=== PATIENT | male | born 1955 | race Caucasian/White ===

== ENCOUNTER 2020-06-14 17:19 | Outpatient (REF) | payer MEDICAID, SELFPAY ==
[2020-06-14 21:04] LABS: Anion Gap 11.2 mmol/L (3-11); BUN 17 mg/dL (7-18); CO2 23.8 mmol/L (21.0-32.0); CREATININE 1.1 mg/dL (0.70-1.30); Calcium 8.9 mg/dL (8.5-10.1); Chloride 104 mmol/L (98-107); Glucose 95 mg/dL (74-106); Potassium 5.1 mmol/L (3.5-5.1); Sodium 139 mmol/L (136-145)
== END 2020-06-14 17:20 | disposition home or self-care (01) ==
LOC: NCHCN 17:19
PROVIDERS: PCP Nurse Practitioner; Visit Provider Physician Assistant Medical
DX: R22.43 Localized swelling, mass and lump, lower limb, bilateral (principal)
CPT/HCPCS: 80048

== ENCOUNTER 2020-06-15 10:33 | Outpatient (CLI) | payer MEDICAID, SELFPAY ==
--- NOTE | 2020-06-15 | DI.US_ITS ---
Exam(s) US EXTREMITY VENOUS BI EXAM: US EXTREMITY VENOUS BI CLINICAL HISTORY: BILAT LEG SWELLING R22.43. TECHNIQUE: Bilateral lower extremity venous ultrasound performed using grayscale, color-flow, and sp ectral Doppler analysis. COMPARISON: No exams were available for comparison FINDINGS: The bilateral common femoral, femoral and popliteal veins demonstrate normal compressibility, augment ation, and color Doppler. The posterior tibial veins are patent. The saphenofemoral junctions are unr emarkable. There is no evidence of a Barrios's cyst. The soft tissues are unremarkable. IMPRESSION: Right: Negative for DVT Left: Negative for DVT DATA REPOSITORY:
[2020-06-15 13:05] LABS: HCT 37.7 % (40.0-50.0); HGB 12.5 g/dL (13.5-17.5); MCH 29.3 pg (27.0-33.0); MCHC 33.2 % (32.0-36.0); MCV 88.5 fL (80-95); MPV 9.9 fL (8.0-11.0); Platelet Count 251 10^3/uL (130-400); RBC 4.26 10^6/uL (4.36-5.78); RDW 13.4 % (11.8-14.1); RDW-SD 43.8 fL; WBC 6.83 10^3/uL (4.4-10.8)
== END 2020-06-15 10:53 ==
PROVIDERS: PCP Nurse Practitioner; Visit Provider Physician Assistant Medical
DX: R22.43 Localized swelling, mass and lump, lower limb, bilateral (principal)
CPT/HCPCS: 36415; 85027; 93970

== ENCOUNTER 2021-02-19 17:56 | Outpatient (REF) | payer MEDICAID, SELFPAY ==
[2021-02-19 20:49] LABS: Abs Immature Grans 0.02 10^3/uL (0.0-0.06); Absolute Basophil Count 0.06 10^3/uL (0.0-0.2); Absolute Eosinophil Count 0.21 10^3/uL (0.0-0.7); Absolute Lymphocyte Count 2.99 10^3/uL (1.2-3.4); Absolute Monocyte Count 0.86 10^3/uL (0.1-0.8); Absolute Neutrophil Count 4.03 10^3/uL (1.2-6.7); Basophils % 0.7; Eosinophils % 2.6; HCT 41.7 % (40.0-50.0); HGB 13.3 g/dL (13.5-17.5); Immature Grans % 0.2; Lymphocytes % 36.6; MCH 27.4 pg (27.0-33.0); MCHC 31.9 % (32.0-36.0); MCV 85.8 fL (80-95); MPV 10.6 fL (8.0-11.0); Monocytes % 10.5; Neutrophils % 49.4; Nucleated RBC 0 %; Platelet Count 329 10^3/uL (130-400); RBC 4.86 10^6/uL (4.36-5.78); RDW 14.1 % (11.8-14.1); RDW-SD 44.2 fL; WBC 8.17 10^3/uL (4.4-10.8)
[2021-02-19 21:03] LABS: ALT 32 U/L (16-63); AST 35 U/L (15-37); Alkaline Phosphatase 99 U/L (46-116); Anion Gap 8.7 mmol/L (3-11); BUN 17 mg/dL (7-18); Bilirubin, Total 0.2 mg/dL (0.2-1.0); CO2 28.3 mmol/L (21.0-32.0); CREATININE 1.1 mg/dL (0.70-1.30); Chloride 101 mmol/L (98-107); Glucose 91 mg/dL (74-106); Potassium 4.7 mmol/L (3.5-5.1); Sodium 138 mmol/L (136-145); Total Protein 7.7 g/dL (6.4-8.2)
[2021-02-21 11:41] LABS: COVID-19 RT-PCR UVMMC Result Negative (Negative)
== END 2021-02-19 17:57 | disposition home or self-care (01) ==
LOC: LBN 17:56
PROVIDERS: PCP Nurse Practitioner; Visit Provider Physician Assistant
DX: R09.81 Nasal congestion (principal); R60.0 Localized edema; Z20.822 Contact with and (suspected) exposure to COVID-19
CPT/HCPCS: 80053; U0003; 85025

== ENCOUNTER 2023-05-05 10:39 | Outpatient (REF) | payer MEDICARE, SELFPAY ==
[2023-05-05 13:09] LABS: Anion Gap 10.1 mmol/L (3-11); BUN 44 mg/dL (7-18); CO2 30.9 mmol/L (21.0-32.0); CREATININE 1.7 mg/dL (0.70-1.30); Calcium 9.3 mg/dL (8.5-10.1); Chloride 98 mmol/L (98-107); Estimated GFR 44.18 (mL/min/1.73m2); Glucose 113 mg/dL (74-106); Potassium 3.8 mmol/L (3.5-5.1); Sodium 139 mmol/L (136-145)
== END 2023-05-05 10:40 ==
LOC: LBN 10:39
PROVIDERS: PCP Nurse Practitioner; Visit Provider Physician Assistant Surgical
DX: I27.20 Pulmonary hypertension, unspecified (principal)
CPT/HCPCS: 80048

== ENCOUNTER 2023-05-05 12:03 | Emergency (ER) | payer MEDICARE, MEDICAID, SELFPAY ==
--- NOTE | 2023-05-05 12:00 | RT.EKG_ITS ---
APPROVED REPORT Exam: Resting ECG Reason for Exam: hypoventilating Patient Location: E HR:106 bpm ECG Measurements Heart Rate 106 AXIS VA 172 P 114 QRSd 127 QRS 33 QT 358 T 47 QTc 475 Conclusion Sinus tachycardia...rate> 99 Ventricular premature complex...V complex w/ short R-R interval Probable left atrial enlargement...P >50mS, <-0.10mV V1 Nonspecific intraventricular conduction delay...QRSd >115mS, not LBBB/RBBB Consider anteroseptal infarct...Q >30mS, dimin R, V1-V2 artifact present
[2023-05-05 12:04] VITALS: O2SAT 94
[2023-05-05] MEDS: Albuterol/Ipratropium 3 ML UPD VIAL UPD (12:09)
[2023-05-05] MEDS: methylPREDNISolone SUCC 125 MG VIAL 60 MG IVP (12:11)
[2023-05-05 12:18] VITALS: TEMP 36.8; O2SAT 94
[2023-05-05 12:19] LABS: Abs Immature Grans 0.03 10^3/uL (0.0-0.06); Absolute Basophil Count 0.07 10^3/uL (0.0-0.2); Absolute Eosinophil Count 0.19 10^3/uL (0.0-0.7); Absolute Lymphocyte Count 3.81 10^3/uL (1.2-3.4); Absolute Monocyte Count 1.31 10^3/uL (0.1-0.8); Absolute Neutrophil Count 3.95 10^3/uL (1.2-6.7); Basophils % 0.7; HCT 37.1 % (40.0-50.0); HGB 12.5 g/dL (13.5-17.5); Immature Grans % 0.3; Lymphocytes % 40.7; MCH 28.9 pg (27.0-33.0); MCHC 33.7 % (32.0-36.0); MCV 86 fL (80-95); MPV 9.8 fL (8.0-11.0); Neutrophils % 42.3; Platelet Count 346 10^3/uL (130-400); RBC 4.32 10^6/uL (4.36-5.78); RDW-SD 43.9 fL; WBC 9.36 10^3/uL (4.4-10.8)
[2023-05-05 12:39] VITALS: PULSE 93; RESP 19; RESP 2
[2023-05-05 12:43] LABS: ALT 28 U/L (16-63); AST 24 U/L (15-37); Albumin 4.1 g/dL (3.4-5.0); Alkaline Phosphatase 92 U/L (46-116); Anion Gap 8.5 mmol/L (3-11); BUN 45 mg/dL (7-18); Bilirubin, Total 0.4 mg/dL (0.2-1.0); CO2 31.5 mmol/L (21.0-32.0); CREATININE 1.6 mg/dL (0.70-1.30); Calcium 9.4 mg/dL (8.5-10.1); Chloride 98 mmol/L (98-107); Estimated GFR 47.52 (mL/min/1.73m2); Glucose 117 mg/dL (74-106); Magnesium 2.2 mg/dL (1.8-2.4); NT-proBNP 58 pg/mL (<300); Potassium 3.2 mmol/L (3.5-5.1); Sodium 138 mmol/L (136-145); Troponin I < 50 ng/L (< or =60)
[2023-05-05] MEDS: Potassium Chloride 20 MEQ TABCR PO (13:14)
[2023-05-05] MEDS: Sodium Chloride-Nasal SPRAY-ADULT 44 ML BTL NS (13:26)
[2023-05-05 13:58] LABS: D-Dimer 4815 ng/mlFEU (<500)
--- NOTE | 2023-05-05 14:00 | DI.CT_ITS ---
Exam(s) CT CHEST PE CTA EXAM: CT CHEST PE CTA CLINICAL HISTORY: shortness of breath. TECHNIQUE: Imaging Protocol: Axial CT angiography was performed with multi-slice acquisition and mu lti-planar and/or 3D reconstructions. CONTRAST MATERIAL: Intravenous: Omnipaque 350 contrast volume:100 mL COMPARISON: CT CT CHEST WO CONTRAST from 04/26/[address] CHEST WO CONTRAST from 05/27/[address] CHEST LOW DOSE CA SCREENING from 05/28/2022 FINDINGS: Tracheobronchial tree: Patent where visualized. Pulmonary parenchyma: Moderate centrilobular emphysematous changes are present. There are no pulmona ry nodules. Mild dependent atelectatic changes are seen in the lung bases. Pulmonary Arteries: There is a nonocclusive filling defect seen in a branch of the pulmonary artery t o the right upper lobe. (Series 6, image 209). Mediastinum and Beatrice: No dominant adenopathy or fluid collection. The esophagus is unremarkable. Visualized thyroid gland: Unremarkable. Pleura: No effusion or pneumothorax. Heart: The heart is not dilated. Coronary artery calcification is present. No pericardial effusion. Aorta: Thoracic aorta non-dilated. No evidence of dissection. Atherosclerotic calcification is presen t. Upper abdomen: There are few tiny hypodensities in the liver which are too small for further charact erization. Soft tissues: Unremarkable. Bones: Within normal limits for the patient's age.There are old healed right rib fractures. IMPRESSION: 1. There is a filling defect in a branch of the pulmonary arteries to the right upper lobe consistent with an embolus. 2. Moderate centrilobular emphysema. 3. Findings were discussed with Dr. Goldsmith at 3:19 p.m. on 05/05/2023. RADIATION DOSE DELIVERED: Total DLP DATA REPOSITORY: All CT scans at this facility are submitted to the National Radiology Data Registry (NRDR) Dose Index Registry (DIR) with the [employer] (A[employer]). RADIATION OPTIMIZATION: All CT scans at this facility use at least one of these dose optimization te chniques: automated exposure control; mA and/or kV adjustment per patient size (includes targeted exa ms where dose is matched to clinical indication); or iterative reconstruction.
[2023-05-05 14:18] LABS: Troponin I < 50 ng/L (< or =60)
[2023-05-05] MEDS: Normal Saline - Diluent 50 ML VIAL IJ (14:49)
[2023-05-05] MEDS: Omnipaque 350 MG/ML 100 ML BTL IJ (14:50)
--- NOTE | 2023-05-05 15:18 | ED.GENADUL_ITS ---
Discharge Plan Disposition Patient Disposition: Home Condition: Stable Discharge Details Clinical Impression: Panic attack, Pulmonary embolism Primary Care Provider: Conchis Tong ED Provider: Palomo Goldsmith Home Meds and New Rx's Prescriptions: New Eliquis DVT-PE Treat 30D Start 5 mg (74 tabs) tablets,dose pack See Rx Instructions .ROUTE .COMPLEX Qty: 74 0RF Rx Instructions: orally per package directions Continued cephalexin 250 mg capsule 250 mg PO QID ipratropium-albuterol 0.5 mg-3 mg(2.5 mg base)/3 mL solution for nebulization 3 ml inhalation Q4H PRN (Reason: wheezing) Qty: 540 8RF Stiolto Respimat 2.5-2.5 mcg/actuation mist 2 puff inhalation DAILY Qty: 4 12RF furosemide [Lasix] 40 mg tablet 40 mg PO DAILY Qty: 60 7RF fluticasone propionate [Flonase Allergy Relief] 50 mcg/actuation spray,suspension 1 spray intranasal BID Qty: 16 0RF Rx Instructions: administer into each nostril rbjcgljo-cnxmosdlx-IH 3.5-10,000-1 mg/mL-unit/mL-% drops,suspension 4 drp otic (ear) TID methadone [Methadone Intensol] 10 mg/mL concentrate 80 mg PO DAILY potassium chloride 10 mEq tablet extended release 10 meq PO DAILY albuterol sulfate [Proventil HFA] 90 mcg/actuation HFA aerosol inhaler 2 puff inhalation Q6H PRN (Reason: shortness of breath or wheezing) Qty: 8.5 12RF atorvastatin [Lipitor] 20 MG tablet 20 mg PO QPM lisinopril 20 MG tablet 20 mg PO QAM omeprazole 20 MG capsule,delayed release(DR/EC) 20 mg PO DAILY Discontinued ibuprofen [Advil Liqui-Gel] 200 MG capsule 400 mg PO Q6H PRN PRN Discharge Instructions Instructions: Pulmonary Embolism (ED), Panic Attack (ED) Additional Instructions: You were started on Eliquis which is a blood thinner to treat pulmonary embolism (blood clot). Please continue as prescribed. Please contact your primary care physician to arrange follow-up. Return to the ER immediately for any worsening or new concerning symptoms. Referrals: [facility] Pulmonary Clinic [Provider Group] Conchis Togn [Primary Care Provider] - HPI General Mode of arrival: ambulatory . Date/Time Provider Initiated Documentation: 05/05/23 12:04 . Limitations to Documentation: no limitations . Information obtained by: patient . HPI Narrative: 67-year-old male with multiple medical problems including history of COPD, pulmonary hypertension, hepatitis C, hypertension, here with chief complaint of shortness of breath. Symptoms are severe. He notes that he started shortly after arrival at his pulmonology appointment. Patient notes he was told he had a hole in his heart that he did not know about and became quite anxious and short of breath and concerned initially for COPD exacerbation. Patient was sent to the emergency ferment for evaluation and treatment. Patient was notably tachycardic and saturating in the mid 90s. EMS administered DuoNeb treatment. Patient requesting steroid noting this has helped him with exacerbations in the past. Dr. Saxena evaluated the patient in pulmonology clinic today and does feel that anxiety is contributing to his presentation. Related Data Home Medications Medication Instructions Recorded Confirmed atorvastatin 20 mg tablet (Lipitor) 20 mg PO QPM 02/11/16 05/05/23 lisinopril 20 mg tablet 20 mg PO QAM 02/11/16 05/05/23 omeprazole 20 mg capsule,delayed 20 mg PO DAILY 02/11/16 05/05/23 release methadone 10 mg/mL oral 80 mg PO DAILY 05/15/21 05/05/23 concentrate (Methadone Intensol) [id number]-paiwqcufo-fastrxcds 3.5 4 drp otic (ear) TID 05/15/21 05/05/23 mg-10,000 unit/mL-1 % ear drops,susp potassium chloride 10 mEq 10 meq PO DAILY 05/15/21 05/05/23 tablet,extended release albuterol sulfate 90 mcg/actuation 2 puff inhalation Q6H PRN 12/10/21 05/05/23 aerosol inhaler (Proventil HFA) shortness of breath or wheezing #8.5 grams fluticasone propionate 50 1 spray intranasal BID #16 grams 04/01/22 05/05/23 mcg/actuation nasal spray,suspension (Flonase Allergy Relief) cephalexin 250 mg capsule 250 mg PO QID 04/21/23 05/05/23 furosemide 40 mg tablet (Lasix) 40 mg PO DAILY #60 tabs 04/21/23 05/05/23 ipratropium 0.5 mg-albuterol 3 mg 3 ml inhalation Q4H PRN wheezing 04/21/23 05/05/23 (2.5 mg base)/3 mL nebulization #540 mL soln tiotropium 2.5 mcg-olodaterol 2.5 2 puff inhalation DAILY #4 grams 04/21/23 05/05/23 mcg/actuation mist for inhalation (Stiolto Respimat) apixaban 5 mg (74 tabs) tablets in See Rx Instructions PO .COMPLEX 05/05/23 a dose pack (Eliquis DVT-PE Treat #74 dose pk 30D Start) Previous Rx's Medication Instructions Recorded albuterol sulfate 90 mcg/actuation 2 puff inhalation Q6H PRN 12/10/21 aerosol inhaler (Proventil HFA) shortness of breath or wheezing #8.5 grams fluticasone propionate 50 1 spray intranasal BID #16 grams 04/01/22 mcg/actuation nasal spray,suspension (Flonase Allergy Relief) furosemide 40 mg tablet (Lasix) 40 mg PO DAILY #60 tabs 04/21/23 ipratropium 0.5 mg-albuterol 3 mg 3 ml inhalation Q4H PRN wheezing 04/21/23 (2.5 mg base)/3 mL nebulization #540 mL soln tiotropium 2.5 mcg-olodaterol 2.5 2 puff inhalation DAILY #4 grams 04/21/23 mcg/actuation mist for inhalation (Stiolto Respimat) apixaban 5 mg (74 tabs) tablets in See Rx Instructions PO .COMPLEX 05/05/23 a dose pack (Eliquis DVT-PE Treat #74 dose pk 30D Start) Allergies Allergy/AdvReac Type Severity Reaction Status Date / Time No Known Drug Allergies Allergy Unknown Other (See Verified 05/05/23 14:10 Comment) General Stated Complaint: SOB JOHN: 3 Review of Systems Constitutional Constitutional: Denies fever(s) Cardiovascular Cardiovascular: Denies chest pain, Reports dyspnea and Reports other (Chest tightness) Respiratory Respiratory: Reports dyspnea Psychiatric Psychiatric: Reports anxiety Exam Const General: cooperative HENMT Mouth: moist mucous membranes Eyes Conjunctivae: normal conjunctivae Sclera: normal sclerae Neck Neck: trachea midline and supple Resp Effort & Inspection: labored and tachypneic Auscultation: no rales and no rhonchi Cardio Rate: tachycardic Rhythm: regular rhythm GI Palpation: soft, not firm, no guarding, no masses, not rigid and nontender Skin General skin exam: no rashes or lesions noted Neuro General: patient alert, patient awake and tone normal Extrem General: no calf tenderness bilaterally and edema Laterality: bilateral (1+) Psych Appearance: grossly normal Mental Status: mental status grossly normal Affect: anxious affect Course Vital Signs Vital signs: Vital Signs Pulse Oximetry 94 05/05/23 12:04 Temperature 36.8 C 05/05/23 12:18 Temperature Source Tympanic 05/05/23 12:18 Respiratory Effort Short of Breath, Labored, Accessory Muscle Use, Incrsd Work of Breathing 05/05/23 12:18 Respiratory Depth Deep 05/05/23 12:18 Respiratory Pattern Tachypnea 05/05/23 12:18 Pulse Oximetry 94 05/05/23 12:18 Oxygen Delivery Method Room Air 05/05/23 12:18 Oxygen Flow Rate 0 05/05/23 12:18 Lab/Test Results Lab/Test Results: Laboratory Tests Range/Units 05/05/23 05/05/23 12:10 13:40 WBC (4.4-10.8) 10^3/uL 9.36 RBC (4.36-5.78) 10^6/uL 4.32 L Hgb (13.5-17.5) g/dL 12.5 L Hct (40.0-50.0) % 37.1 L MCV (80-95) fL 86 MCH (27.0-33.0) pg 28.9 MCHC (32.0-36.0) % 33.7 RDW (11.8-14.1) % 14.0 Plt Count (130-400) 10^3/uL 346 MPV (8.0-11.0) fL 9.8 Immature Gran % 0.3 Neutrophils % 42.3 Lymphocytes % 40.7 Monocytes % 14.0 Eosinophils % 2.0 Basophils % 0.7 Nucleated RBC % (0.0-0.3) % 0.0 Absolute Neutrophils (1.2-6.7) 10^3/uL 3.95 Absolute Lymphocytes (1.2-3.4) 10^3/uL 3.81 H Absolute Monocytes (0.1-0.8) 10^3/uL 1.31 H Absolute Eosinophils (0.0-0.7) 10^3/uL 0.19 Absolute Basophils (0.0-0.2) 10^3/uL 0.07 D-Dimer (<500) ng/mlFEU 4815 H Sodium (136-145) mmol/L 138 Potassium (3.5-5.1) mmol/L 3.2 L Chloride (98-107) mmol/L 98 Carbon Dioxide (21.0-32.0) mmol/L 31.5 Anion Gap (3-11) mmol/L 8.5 BUN (7-18) mg/dL 45 H Creatinine (0.70-1.30) mg/dL 1.6 H Est GFR (CKD-EPI 2020) (mL/min/1.73m2) 47.52 Glucose (74-106) mg/dL 117 H Calcium (8.5-10.1) mg/dL 9.4 Magnesium (1.8-2.4) mg/dL 2.2 Total Bilirubin (0.2-1.0) mg/dL 0.4 AST (15-37) U/L 24 ALT (16-63) U/L 28 Alkaline Phosphatase (46-116) U/L 92 Troponin I (< or =60) ng/L < 50 < 50 NT-Pro-B Natriuret Pep (<300) pg/mL 58 Total Protein (6.4-8.2) g/dL 8.0 Albumin (3.4-5.0) g/dL 4.1 Medical Decision Making 67-year-old male with history of COPD, pulmonary hypertension, anxiety disorder, here with severe shortness of breath. Initial concern for acute COPD exacerbation. Patient was given a DuoNeb treatment by EMS. A second DuoNeb treatment was provided as well as Solu-Medrol 60 mg. On reassessment symptoms significantly improved. Patient feeling much better. Patient now relating that he feels his symptoms are likely due to a panic attack related to hearing that there was a hole in his heart during pulmonology visit. Labs were sent including D-dimer to assess for pulmonary embolism. D-dimer was positive. CT of the chest was obtained and interpreted by radiology. I spoke with Dr. Rausch about the study. He notes a filling defect in a branch of the pulmonary artery in the right upper lobe consistent with embolism. Dr. Rausch notes no signs of right heart failure. Patient is hemodynamically stable and saturating well in no respiratory distress. Plan at this time is to initiate treatment with Eliquis. I called care management to help secure this medication. I called and spoke with Dr. Saxena and updated her as to ED course. She is in agreement with plan and will arrange for outpatient follow-up with the patient. Lab Data Lab results reviewed: Yes I reviewed the patient's lab results. Labs: Laboratory Tests Range/Units 05/05/23 05/05/23 12:10 13:40 WBC (4.4-10.8) 10^3/uL 9.36 RBC (4.36-5.78) 10^6/uL 4.32 L Hgb (13.5-17.5) g/dL 12.5 L Hct (40.0-50.0) % 37.1 L MCV (80-95) fL 86 MCH (27.0-33.0) pg 28.9 MCHC (32.0-36.0) % 33.7 RDW (11.8-14.1) % 14.0 Plt Count (130-400) 10^3/uL 346 MPV (8.0-11.0) fL 9.8 Immature Gran % 0.3 Neutrophils % 42.3 Lymphocytes % 40.7 Monocytes % 14.0 Eosinophils % 2.0 Basophils % 0.7 Nucleated RBC % (0.0-0.3) % 0.0 Absolute Neutrophils (1.2-6.7) 10^3/uL 3.95 Absolute Lymphocytes (1.2-3.4) 10^3/uL 3.81 H Absolute Monocytes (0.1-0.8) 10^3/uL 1.31 H Absolute Eosinophils (0.0-0.7) 10^3/uL 0.19 Absolute Basophils (0.0-0.2) 10^3/uL 0.07 D-Dimer (<500) ng/mlFEU 4815 H Sodium (136-145) mmol/L 138 Potassium (3.5-5.1) mmol/L 3.2 L Chloride (98-107) mmol/L 98 Carbon Dioxide (21.0-32.0) mmol/L 31.5 Anion Gap (3-11) mmol/L 8.5 BUN (7-18) mg/dL 45 H Creatinine (0.70-1.30) mg/dL 1.6 H Est GFR (CKD-EPI 2020) (mL/min/1.73m2) 47.52 Glucose (74-106) mg/dL 117 H Calcium (8.5-10.1) mg/dL 9.4 Magnesium (1.8-2.4) mg/dL 2.2 Total Bilirubin (0.2-1.0) mg/dL 0.4 AST (15-37) U/L 24 ALT (16-63) U/L 28 Alkaline Phosphatase (46-116) U/L 92 Troponin I (< or =60) ng/L < 50 < 50 NT-Pro-B Natriuret Pep (<300) pg/mL 58 Total Protein (6.4-8.2) g/dL 8.0 Albumin (3.4-5.0) g/dL 4.1 Quality:SDOH Health Related Social Needs: No Data to Display PFSH All Active Problems (Updated 05/05/23 @ 15:35 by Palomo Goldsmith MD) Pulmonary embolism (Chronic) Panic attack (Acute) Pulmonary hypertension (Acute) Abnormal chest CT (Acute) Dyspnea (Acute) Nicotine dependence, cigarettes, uncomplicated (Acute) Pleural effusion (Acute) Ribs, multiple fractures (Acute) Atelectasis (Acute) Pedal edema (Acute) Hepatitis C (Chronic) Heartburn (Acute) GERD (gastroesophageal reflux disease) (Chronic) Essential hypertension (Acute) Depression (Chronic) Atrioventricular block (Acute) Arthritis (Acute) Anxiety (Chronic) ADHD (Acute) Medical History History of meniscal tear History of drug abuse History of alcohol abuse Surgical History H/O: vasectomy History of esophagogastroduodenoscopy (EGD) History of colonoscopy H/O arthroscopy of left knee Family History Father Diabetes Hypertension Mother Hypertension Heart disease Hypothyroidism Breast cancer Social History Smoking/Tobacco Use Status: Former Tobacco Use Smoking risk assessment performed?: Yes Alcohol Intake: former Substance use type: does not use Housing: house Do you feel safe at home: Yes Do you feel safe in your relationship?: Yes
[2023-05-05] MEDS: Apixaban 5 MG TAB 10 MG PO (16:25)
[2023-05-05 16:50] VITALS: PULSE 93; RESP 19
== END 2023-05-05 16:54 | disposition home or self-care (01) ==
LOC: ER 16:23
PROVIDERS: Emergency Provider Student in an Organized Health Care Education/Training Program; PCP Nurse Practitioner
DX: I27.20 Pulmonary hypertension, unspecified (principal); I26.99 Other pulmonary embolism without acute cor pulmonale; F41.0 Panic disorder [episodic paroxysmal anxiety]; I10 Essential (primary) hypertension; J44.9 Chronic obstructive pulmonary disease, unspecified; R94.31 Abnormal electrocardiogram [ECG] [EKG]; R79.89 Other specified abnormal findings of blood chemistry; Z87.891 Personal history of nicotine dependence
CPT/HCPCS: 36415; 71275; 76604; 80053; 93005; 94640; 96374; 99214; 99285; 83735; 83880; 84484; 85025; 85379; 93010; 99284; J2930; J3490; J7620

== ENCOUNTER → 2023-06-04 14:57 | Outpatient (BNVA) | payer MEDICARE, MEDICAID, SELFPAY | PROVIDERS: PCP Nurse Practitioner; Referring Provider Nurse Practitioner; Visit Provider Student in an Organized Health Care Education/Training Program | DX: R60.0 Localized edema (principal); J44.9 Chronic obstructive pulmonary disease, unspecified; I26.99 Other pulmonary embolism without acute cor pulmonale; I27.20 Pulmonary hypertension, unspecified; F17.210 Nicotine dependence, cigarettes, uncomplicated | CPT/HCPCS: 99214 ==

== ENCOUNTER → 2023-08-05 10:04 | Outpatient (BNVA) | payer MEDICARE, MEDICAID, SELFPAY | PROVIDERS: PCP Nurse Practitioner; Referring Provider Nurse Practitioner; Visit Provider Physician Assistant Surgical | DX: J44.9 Chronic obstructive pulmonary disease, unspecified (principal); F17.210 Nicotine dependence, cigarettes, uncomplicated; I26.99 Other pulmonary embolism without acute cor pulmonale | CPT/HCPCS: 99214 ==

== ENCOUNTER → 2023-08-10 09:16 | Outpatient (BNVA) | payer MEDICARE, MEDICAID, SELFPAY | PROVIDERS: PCP Nurse Practitioner; Referring Provider Nurse Practitioner; Visit Provider Student in an Organized Health Care Education/Training Program | DX: M16.12 Unilateral primary osteoarthritis, left hip (principal) | CPT/HCPCS: 99214 ==

== ENCOUNTER 2023-09-16 06:07 | Day surgery (SDC) | payer MEDICARE, MEDICAID, SELFPAY ==
[2023-09-16] VITALS (41 sets, daily range): BP systolic 59–143; BP diastolic 32–106; PULSE 53–100; RESP 10–26; TEMP 36.4–36.9; O2SAT 90–99; BMI 35.7
[2023-09-16] MEDS: Gabapentin 300 MG CAP PO (07:02)
[2023-09-16] MEDS: Acetaminophen 500 MG TAB 1000 MG PO (07:02)
[2023-09-16] MEDS: Celecoxib 200 MG CAP 400 MG PO (07:02)
--- NOTE | 2023-09-16 07:18 | W.ANESPRE ---
General Info Date of Service Date Performed: 09/16/23 Height: 6 ft Weight: 119.6 kg Body Mass Index (BMI): 35.7 Surgical Procedure: Operation Date: 09/16/23 07:50 Proposed Procedure Side Surgeon p Hip Total Hip Anterior, ACTIS Left Patrick Seymour MD Meds Allergies and Home Medications Allergies Allergy/AdvReac Type Severity Reaction Status Date / Time No Known Drug Allergies Allergy Unknown Other (See Verified 09/16/23 06:09 Comment) Home Medication ?Medication ?Instructions ?Recorded atorvastatin 20 mg tablet (Lipitor) 20 mg PO QPM 02/11/16 lisinopril 20 mg tablet 20 mg PO QAM 02/11/16 oslxhnyb-szgvwytlq-fnzkolsat 3.5 4 drp otic (ear) TID 05/15/21 mg-10,000 unit/mL-1 % ear drops,susp ipratropium 0.5 mg-albuterol 3 mg 3 ml inhalation Q4H PRN wheezing 04/21/23 (2.5 mg base)/3 mL nebulization #540 mL soln tiotropium 2.5 mcg-olodaterol 2.5 2 puff inhalation DAILY #4 grams 04/21/23 mcg/actuation mist for inhalation (Stiolto Respimat) apixaban 5 mg (74 tabs) tablets in See Rx Instructions PO .COMPLEX 05/05/23 a dose pack (Splashscore DVT-PE Treat #74 dose pk 30D Start) torsemide 20 mg tablet 20 mg PO DAILY 06/04/23 albuterol sulfate 90 mcg/actuation 2 puff inhalation Q6H PRN 07/14/23 aerosol inhaler (Ventolin HFA) chlorthalidone 25 mg tablet 25 mg PO DAILY 07/14/23 metolazone 5 mg tablet 10 mg PO DAILY 07/14/23 metoprolol tartrate 25 mg tablet 25 mg PO DAILY 07/14/23 omeprazole 40 mg capsule,delayed 40 mg PO DAILY 07/14/23 release potassium bicarbonate-citric acid 20 meq PO DAILY 07/14/23 20 mEq effervescent tablet fluticasone propionate 50 1 spray intranasal BID PRN 08/05/23 mcg/actuation nasal spray,suspension (Flonase Allergy Relief) methadone 10 mg/mL oral 130 mg PO DAILY 08/05/23 concentrate (Methadone Intensol) Current Visit Medications: Current Medications Generic Name Dose Route Start Last Admin Trade Name Zhen PRN Reason Stop Dose Admin Acetaminophen 1,000 mg 09/16/23 06:00 09/16/23 07:02 Acetaminophen 500 Mg Tab PO 09/16/23 23:59 1,000 mg PREOP SUNDEEP Administration Celecoxib 400 mg 09/16/23 06:00 09/16/23 07:02 Celecoxib 200 Mg Cap PO 09/16/23 23:59 400 mg PREOP SUNDEEP Administration Gabapentin 300 mg 09/16/23 06:00 09/16/23 07:02 Gabapentin 300 Mg Cap PO 09/16/23 23:59 300 mg PREOP SUNDEEP Administration Ringer's Solution 1,000 mls @ 80 mls/hr 09/16/23 06:00 IV 09/16/23 23:59 INFUSION SUNDEEP Cefazolin Sodium 3,000 mg/ 100 mls @ 200 mls/hr 09/16/23 06:00 Sodium Chloride IVPB 09/16/23 23:59 PREOP SUNDEEP Tranexamic Acid/Sodium Chloride 1,000 mg in 100 mls @ 600 mls/hr 09/16/23 06:00 IVPB 09/16/23 23:59 PREOP SUNDEEP IV Miscellaneous Supplies 1 each 09/16/23 06:00 Iv Access IV 09/16/23 23:59 DIRECTED SUNDEEP Sodium Chloride 0 ml 09/16/23 06:00 Normal Saline Flush 10 Ml Syr IV 09/16/23 23:59 PRN PRN Sodium Chloride 0 ml 09/16/23 06:00 Normal Saline 10 Ml Vial IJ 09/16/23 23:59 DIRECTED PRN Sterile Water 0 ml 09/16/23 06:00 Water,Injection,Sterile 10 Ml Vial IJ 09/16/23 23:59 DIRECTED PRN PFSH Active Problems Active Problems: Problem Status Onset Code Status post total replacement of right hip Acute Z96.641 Degenerative joint disease of left hip Chronic M16.12 Pulmonary hypertension Acute I27.[address] Acute R93.89 Dyspnea Acute R06.00 Nicotine dependence, cigarettes, uncomplicated Acute F17.210 Pleural effusion Acute J90 Ribs, multiple fractures Acute S22.49XA Atelectasis Acute J98.11 Pedal edema Acute R60.0 Hepatitis C Chronic B19.20 Heartburn Acute R12 GERD (gastroesophageal reflux disease) Chronic K21.9 Essential hypertension Acute I10 Depression Chronic F32.A Atrioventricular block Acute I44.30 Arthritis Acute M19.90 Anxiety Chronic F41.9 ADHD Acute F90.9 Medical History Medical History (Updated 09/16/23 @ 06:40 by Gisselle Fitzgerald) Unspecified rotator cuff tear or rupture of right shoulder, not specified as traumatic History of meniscal tear History of drug abuse History of alcohol abuse Surgical History Surgical History H/O: vasectomy History of esophagogastroduodenoscopy (EGD) History of colonoscopy H/O arthroscopy of left knee Tobacco Smoking/Tobacco Use Status: Former Tobacco Use Alcohol Alcohol Intake: former Substance Use Substance use: Current Sobriety Substance use type: former substance user Vital Signs and Lab Results Vital Signs Most Recent Vital Signs in EMR: Most Recent Vital Signs Temp Pulse Resp BP Pulse Ox 36.9 C 89 18 128/58 L 96 09/16/23 06:41 09/16/23 06:41 09/16/23 06:41 09/16/23 06:41 09/16/23 06:41 Lab Results Blood Type / Crossmatch: No Data to Display Complete Blood Count: No Data to Display Complete Metabolic Panel: No Data to Display Liver Function Panel: No Data to Display Coagulation Panel: No Data to Display Cardiac Panel: No Data to Display Arterial Blood Gas: No Data to Display Venous Blood Gas: No Data to Display Pancreas Panel: No Data to Display Thyroid Panel: No Data to Display Infectious Disease: No Data to Display Blood Cultures: No Data to Display Toxicology Panel: No Data to Display Anesthesia Assessment and Plan Anesthesia History Personal History: No History of Anesthesia Complications Family History: No Family History of Anesthesia Complications Exercise Tolerance Exercise Tolerance: Metabolic Equivalents>4 Pertinent Negatives Pertinent Negatives: No Symptoms of GERD (Rx) Cardiac & Pulmonary Exam Cardiac Exam: Normal S1/S2 Heart Sounds Pulmonary Exam: Clear Bilateral Breath Sounds Implantable Cardiac Device Does patient have a Pacemaker or an ICD?: No Airway Exam Known Difficult Airway: No Mallampati Class: 2 Mouth Opening: Normal (> 3cm) Thyromental Distance: Greater than 3 cm Neck Range of Motion: Full ROM Neck Circumference: Normal Teeth Condition: Normal Dentition ASA Classification ASA Score: ASA 3 Emergency Case?: No NPO Status NPO Status: NPO Clears >2 hours, Solids >8 hours Anesthesia Plan Resuscitation Status: Full Code Anesthesia Technique: Spinal Anesthesia Airway Planned: Natural Airway Monitors Used: Standard Monitors Preoperative Comments:: Medically complex patient that follows medical recommendations but is high risk d/t cardiac and pulmonary morbidities. Sumaya Stein, LEGAL PARAPROFESSIONAL
--- NOTE | 2023-09-16 07:20 | W.PM.DSUDISC ---
Date of service: 09/16/23 Time of Service: 07:21 Discharge Plan Disposition Patient Disposition: Home Condition: Good Discharge Details Reason For Visit: L THR Attending Provider: Patrick Seymour Primary Care Provider: Conchis Tong Home Meds and New Rx's Prescriptions: New acetaminophen 500 mg tablet 1,000 mg PO TID Qty: 90 3RF celecoxib 200 mg capsule 200 mg PO BID Qty: 60 0RF dexamethasone 4 mg tablet 4 mg PO DAILY Qty: 2 0RF oxycodone 10 mg tablet 10 mg PO Q4H PRN (Reason: pain) Qty: 20 0RF Continued ipratropium-albuterol 0.5 mg-3 mg(2.5 mg base)/3 mL solution for nebulization 3 ml inhalation Q4H PRN (Reason: wheezing) Qty: 540 8RF Stiolto Respimat 2.5-2.5 mcg/actuation mist 2 puff inhalation DAILY Qty: 4 12RF fluticasone propionate [Flonase Allergy Relief] 50 mcg/actuation spray,suspension 1 spray intranasal BID PRN Rx Instructions: administer into each nostril chlorthalidone 25 mg tablet 25 mg PO DAILY metolazone 5 mg tablet 10 mg PO DAILY metoprolol tartrate 25 mg tablet 25 mg PO DAILY omeprazole 40 mg capsule,delayed release(DR/EC) 40 mg PO DAILY potassium bicarb-citric acid 20 mEq tablet, effervescent 20 meq PO DAILY albuterol sulfate [Ventolin HFA] 90 mcg/actuation HFA aerosol inhaler 2 puff inhalation Q6H PRN torsemide 20 mg tablet 20 mg PO DAILY gabtkmpq-zwnrcigxu-PB 3.5-10,000-1 mg/mL-unit/mL-% drops,suspension 4 drp otic (ear) TID methadone [Methadone Intensol] 10 mg/mL concentrate 130 mg PO DAILY atorvastatin [Lipitor] 20 MG tablet 20 mg PO QPM lisinopril 20 MG tablet 20 mg PO QAM Eliquis DVT-PE Treat 30D Start 5 mg (74 tabs) tablets,dose pack See Rx Instructions .ROUTE .COMPLEX Qty: 74 0RF Rx Instructions: orally per package directions Discharge Instructions Additional Instructions: Total Hip Discharge Instructions Activity: The most important activity is to walk. You should try to take short walks a few times a day. You have no restrictions on movement or positioning, but do not try to force what you do. You will find some stiffness and weakness with hip flexion (lifting your knee). Do not try to strengthen this too early, continue to practice walking and stairs and this will come. - Outpatient physical therapy can be helpful to help return you to a normal gait and improve your flexibility and strength. This can start around 2 weeks. For some patients, it?s not necessary. Usually this is determined at the time of discharge or at the first post-operative visit. - You should wear the BENNIE hose on both legs for 2 weeks. Dressing: Keep the surgical dressing in place for at least one week. After the first week it may be removed and replace with light gauze and tape or nothing. It may get wet after 3 days but avoid soaking the dressing. If it gets wet, just lightly pat dry. It is important to always keep some gauze between skin folds, especially when you are sitting. Spend some time with the wound exposed when you are lying flat as the incision does wrinkle onto itself. Medications: - You should take Tylenol and an anti-inflammatory Celebrex as your primary pain control medications. If the Celebrex is too expensive or not covered, please call the office for another alternative (Advil/Ibuprofen or Naproxen/Aleve). - You have been prescribed a stronger pain medication Oxycodone for breakthrough pain, take as needed as prescribed. - You will continue your omeprazole to help reduce stomach acid and reflux. - You have also been prescribed Decadron to help with post-operative nausea and pain. You will take this for two days starting tomorrow. - You will be taking your apixaban for DVT prevention unless instructed otherwise. - If you have constipation you should take Colace or Miralax (both rody-elj-pljocow). It takes most people 3-4 days to have a bowel movement. Follow-up: 2 weeks If you have any acute concerns or questions, please do not hesitate to contact the office at [phone]. You may contact Dr. Seymour with any questions after hours through the hospital at [phone] or on his cell phone at [phone]. Stand Alone Forms: Anesthesia Discharge InstSrinivas, Shelby Boyd (U) Referrals: Patrick Seymour MD [ [facility] STAFF PHYSICIAN] - 10/01/23 10:45 am Equipment/Supplies: Walker Activity:: Activity as Tolerated Shower/Bathe:: 72 hours Diet:: As Tolerated Discharge Orders Discharge Orders: Discharge Order (Routine); Ordered 09/16/23 Ordered By: Osmin Vargas DS: Diagnosis Discharge Diagnosis (1) Degenerative joint disease of left hip: Status: Chronic
[2023-09-16] MEDS: Lactated Ringers 1,000 ML 80 ML IV (07:35)
[2023-09-16] MEDS: ceFAZolin 3,000 MG in Normal Saline 100 ML 200 MG IVPB (07:50)
[2023-09-16] MEDS: TRANEXAMIC ACID/SOD. CHL. 1,000 MG/100 ML BAG 600 MG IVPB (08:01)
--- NOTE | 2023-09-16 09:01 | DI.RAD_ITS ---
Exam(s) XR HIP LT IN OR EXAM: XR HIP LT IN OR CLINICAL HISTORY: left hip oa. TECHNIQUE: 2D digital imaging was performed. COMPARISON: No exams were available for comparison FINDINGS: Three provided during left hip arthroplasty. See procedure report for details. Total fluoroscopy time 31.2 second IMPRESSION: Radiation exposure index/cumulative dose: yvonne Sanabria= 6.0266 mGy DATA REPOSITORY: RADIATION DOSE DELIVERED:
--- NOTE | 2023-09-16 09:11 | ROE_ITS ---
Date of service: 09/16/23 Time of Service: 07:45 Operative Note Operative Note DATE OF PROCEDURE: 09/16/23 PRE-OP DIAGNOSIS: Left Hip Osteoarthritis/Avascular Necrosis POST-OP DIAGNOSIS: same PROCEDURE: Left Anterior Total Hip Arthroplasty with Intraoperative Navigation SURGEON: Patrick Seymour SENIOR ASSISTANT MANAGER: Osmin Vargas ANESTHESIA TYPE: Spinal Refer to Anesthesia Record ESTIMATED BLOOD LOSS: 200 PATHOLOGY: none sent TOURNIQUET TIME: 0 COMPLICATIONS: None Patient was transported to: PACU Patient's condition: stable Implants: 1. Depuy [place] Acetabular Component, 54 mm 2. Depuy Acetabular Liner, [id number] 3. Depuy Actis Standard Collared Femoral Stem, Size 6 4. Depuy Altrx Ceramic Femoral Head, Size 36+5mm Indications: I have seen Marcell in clinic for symptoms of hip arthritis, confirmed with radiographic findings. He has exhausted nonoperative methods and was having significant limitations in daily function and desired better function and less pain. I discussed the technical details of a hip replacement. I explained the risks of the procedure to include, but not limited to, bleeding, infection, pain, stiffness, fracture, damage to nerves and vessels, damage to muscles and tendons, loosening, instability, leg length inequality, need for repeat procedure, blood clot and cardiopulmonary demise. Despite these risks, Marcell elected to proceed. Findings: There was significant signs of arthritis throughout the hip with notable deformity of the femoral head and large osteophytes and synovitis throughout. Procedure Description: Marcell was greeted in the preoperative holding area where the correct side was identified and marked. The consent was reviewed with the patient and signed. The history and physical was updated. All questions were answered. Marcell was taken back to the operating room. A spinal anesthestic was then administered. The feet were wrapped with cast padding and Coban and then placed into the boot liners and then into the boots. Care was taken to protect the skin and make sure the heels were fully down and the boots were stable. The patient was then positioned onto the HANA table. Both legs were held in a neutral position. SCDs were applied. The patient was then slid down onto a peroneal post. Prophylactic antibiotics in the form of Cefazolin were administered. 1g of Tranxemic Acid was given intravenously within 30 minutes of incision. The left leg was then prepped with Chloraprep and draped in a standard fashion. A second prep with Chloraprep was performed prior to placement of a shower-curtain type drape with Iodine impregnated skin protection. A timeout to confirm correct identity, side and site, procedure, allergies, anesthesia, and medical concerns was performed. An obliquely oriented incision was made starting lateral to the ASIS and running distal over the Tensor Fascia Norma (TFL) muscle belly toward the fibular head, approximately 10cm. The skin and soft tissue was dissected sharply, through Shantel?s fascia, and to the fascia of the TFL. With the fascia and superior border of the IT band identified, the fascia was incised with a new knife just above any perforators from the IT band. The TFL muscle belly was bluntly dissected away from the fascia and moved laterally. The fat between TFL and rectus was identified to ensure the dissection was not within the TFL. Blunt dissection created space between abductors and the capsule and retractor was placed over the lateral femoral neck. The fibers of the rectus femoris tendon were identified and these were freed from the anterior capsule. A second cobra retractor was placed around the medial femoral neck. The TFL was further retracted laterally to show the deep fascia. Careful dissection through this layer identified three main crossing vessels of the lateral femoral circumflex. These were cauterized in multiple locations and then cut without any noticeable bleeding. The TFL was further released bluntly from the deep fascia to expose anterior hip capsule and fat The orthopaedic retractor was then placed beneath the TFL and against sartorius and medial soft tissues to protect and retract the soft tissues. A T-capsulotomy was then performed starting at the superior lateral acetabulum and moving distally to the intertrochanteric ridge. These capsular flaps were tagged with a No. 1 Ethibond and elevated from within. The capsular flaps were released to the shoulder of the lateral neck and to the lesser trochanter to give excellent visualization of the proximal femur. A neck osteotomy was performed using an oscillating saw based on preoperative templates. This cut started in the shoulder and of the lateral neck and exited medially. The saw was at all times directed medially to avoid injury to the greater trochanter. Gross traction was applied to the leg and the osteotomy opened. The femoral head was removed with a corkscrew, making sure to protect the TFL on its exit. Traction was released after head removal. The head was notably flattened and aspherical with signs of avascular necrosis. This was measured on the back table to determine the starting reamer size. Portions of the rectus obscuring visualization were minimally elevated off the superior acetabulum. An anterior retractor was placed over the anterior wall between capsule and labrum and attached to the Gripper retraction system. The femur was rotated to 90 degrees and medial capsule was fully released until the lesser trochanter was palpable and visible; the femur was returned to 30 degrees. A posterior retractor was placed similarly between capsule and labrum. This provided excellent visualization. The contents of the cotyloid fossa were removed with electrocautery and the labrum was removed with a knife. There was a notable floor osteophyte. There was significant chondromalacia of the superior acetabulum. Acetabular reaming began with a 50mm reamer. This first reaming was directed anterior to posterior and medial to get down to the true floor. This was inspected and reamed until the true floor was reached. The anterior retractor was then released and entry and exit was provided by traction on the capsular flaps. I then reamed sequentially up to a 54mm reamer where good fit was obtained. The larger reamers were oriented based on anatomical reference of the anterior and lateral rooney to ensure proper abduction and anteversion. Positioning and size was confirmed with the fluoroscopy. A 54mm Depuy [place] acetabular component was selected. The acetabulum was reamed around the periphery with the selected acetabular size to prevent a rim fit. The deep tissues were irrigated. The acetabular component was then impacted in a position of about 40-45 degrees of abduction and 15-20 degrees of anteversion, using the patient?s anatomy as the ultimate landmark. Fluoroscopy was used to confirm this. There was excellent senior asic design engineer of the acetabular component and the inserting handle was removed. The acetabular liner, Depuy [id number] polyethylene liner, was inserted and lined up with the tines of the acetabular component. There was no soft tissue interposition. The liner was then impacted into position and confirmed to be well-seated. A portion of the kasey-articular cocktail was then injected around the acetabulum into the capsule and periosteum. This cocktail consisted of 123mg of Ropivacaine, 0.25mg of Epinephrine, 0.04mg of Clonidine, and 15mg of Ketorolac, diluted to 50cc. The leg was rotated to 120 degrees. Any remaining medial capsule was released until the lesser trochanter was easily palpable. A retractor was placed medially. The lateral capsule was further released into the shoulder to allow access to the greater trochanter. A Daugherty retractor was placed over the greater trochanter which allowed the trochanter to flip in front of the capsule for excellent exposure. The leg was brought down into maximal extension and 20 degrees of adduction while ensuring there was no impingement on the acetabulum. Any remnant capsule within the trochanter was released. Piriformis and obturator externis were identified and protected. There was excellent access to the proximal femur. The lateral neck remnant was removed with a rongeur. A blunt canal probe was used to identify the canal and trajectory for later broaching. A box osteotome initiated the broach course. A small curved rasp and a curved curette were used to work laterally. Broaching then began with a starter Actis broach. This was inserted manually around the trochanter and into the canal before mallet blows. The broach was seated to a few millimeters below the cut level based on the neck cut and the preoperative template. Sequential broaching was continued with the Quandoose pneumatic broaching device until a tight fit was obtained with good rotational control of the femur. A trial high offset neck was inserted along with a +5 trial head. The leg was brought out of extension and adduction and then reduced with traction and internal rotation. The leg was stable anteriorly in a position of 30 degrees of extension and 90 degrees of external rotation. Fluoroscopy was used to ensure there was no fracture and the stem was seated well. Leg lengths were checked with an AP pelvis and pelvic reference points. 422 Group navigation system was used to confirm appropriate positioning and leg length and offset. This over-crrected the offset but improved with a standard neck. Once content with the desired offset and leg lengths, the leg was brought back into extension, external rotation and adduction. The periosteum and surrounding tissue was injected with remaining portion of the kasey-articular cocktail. The proximal femur was irrigated as well as the deep tissues. The [employer]uy Actis standard collared stem, size 6, was then manually inserted into the proximal femur making sure to control rotation. It was then malleted into position with light blows, giving breaks to allow bone expansion and decrease risk of fracture. The selected Depuy Altrx Ceramic Head, size 36+5mm, was then placed onto the clean and dry trunnion and secured with impaction onto the tapered fit. The leg was brought back out of extension and adduction and reduced with traction and internal rotation. Stability was confirmed with no shuck at 90 degrees of external rotation and 30 degrees of extension. No impingement through range of motion arc. Final x-ray images were obtained with fluoroscopy to confirm adequate positioning and no intraoperative fracture. The deep tissues were thoroughly irrigated with Surgiphor, betadine solution. This was allowed to sit in the wound for 3 minutes before being thoroughly irrigated out with normal saline. The capsule was then reapproximated with the previously placed Ethibond sutures. The TFL fascia was finally closed with a No. 2 Stratafix, barbed suture. Deep tissues were then reapproximated with 0 Vi cryl and a running 2-0 Vicryl. The skin was closed with a running 4-0 Monocryl in a subcuticular fashion. This was reinforced with skin glue. A Mepilex silver dressing was applied. At the end of the case, all counts were correct. Marcell was transferred to the hospital bed without difficulty and suffering no apparent complication. Marcell has a good prognosis. Physical therapy will start today and without restrictions, weight-bearing as tolerated. Eliquis, his baseline anticoagulant, will be used for DVT prophylaxis.
[2023-09-16] MEDS: ePHEDrine 25 MG/5 ML Syringe IVP (09:27)
[2023-09-16] MEDS: fentaNYL 100 MCG/2 ML VIAL IVP (10:20)
--- NOTE | 2023-09-16 11:34 | IN_ITS ---
PT Notes Visit Reasons: L THR Physical Therapy Day Surgery Initial Evaluation Date: 09/16/2023 Referring Doctor: Dr Seymour PT Orders: PT CONSULT: Precautions: WBAT LLE Patient Profile/Admitting Diagnosis: Marcell is a 68 yo male referred s/p L JAMIN 09/16/2023. PMHX: COPD, Hepatitis C GErD, Depression, AV block, Anxiety, ADHD, Pulmonary Hypertension, BLE edema Social History/Home Situation: Lives with in 1 level home with 3 steps and B rails to enter Equipment Owned/DME: FWW, 4WW/rollator, Subjective: It feels so much better compared to this morning. Objective: pleasant cooperative male semireclined on stretcher General Observation: Mental Status: A+ O x 4 Pain: 3/10 on GENERAL OFFICE CLERK left hip ROM: Right Upper Extremity: WNL Left Upper Extremity: WNL Right Lower Extremity: WNL Left Lower Extremity: hip flexion: 95 degrees, Abduction: 20 degrees, Extension 5 degrees, Knee and ankle WNL Strength: Right Upper Extremity: grossly 5/5 Left Upper Extremity: grossly 5/5 Right Lower Extremity: grossly 5/5 Left Lower Extremity: Hip 3-/5 knee >/= to 3/5; ankle >/= to 3/5 Sensation: intact to light touch deep pressure,hot, cold Bed Mobility/Transfers: Supine to sit Independent Sit to stand Independent Stand to sit Independent Bed to chair Independent Gait: SBA with FWW 50 feet x 2 step to pattern Stairs: 4 steps with B rails with SBA cues for sequencing Balance: Static Sitting: Normal Dynamic Sitting: Good Static Standing: Fair Dynamic Standing: Fair+ with UE support Special Tests: Mobility Limitations Standardized Measure [facility] AM-PAC 6 clicks Basic Mobility Inpatient Short Form: [X] Raw Score: [23] CMS Score: [11.20%] Informed Consent/Education: Patient instructed in purpose of PT consult. Packet containing Hip exercise protocol has been given to patient. Education and training on initial set of exercises that can be done at home have been completed with patient. Written instruction for sequencing on stairs also provided to patient. Assessment: Patient presents with clinical signs and symptoms consistent with current/admi tting diagnoses that have resulted to mobility limitations, gait instability, generalized weakness, and impairment of motor control as demonstrated by the following impairment level findings: 1. Decreased strength to left hip major muscle groups 2. Impaired standing balance 3. Limitation of joint range of motion in left hip Impairments are contributing to the following functional limitations: 1. Inability to safely ambulate without assistive device 2. Increase completion time for mobility ADL performance 3. Increased fall risk Patient is assessed as a low complexity based on the following: History: Pt is 68-year-old male with impairment level findings, functional limitations, and past medical history as indicated above Examination: Demonstrable impairment in strength LLE, balance, and mobility level with underlying impairments and functional limitations as documented above Presentation: motivated , cooperative Decision Making: good Goals: N/A. PT evaluation and 1-2 treatment sessions only for functional mobility training using recommended AD and for HEP instruction. Plan of Care/Treatment Plan: N/A. PT evaluation and 1-2 treatment session only for functional mobility t raining using recommended AD and for HEP instruction. DISCHARGE RECOMMENDATIONS: Home with , utilize FWW perform HEP as instructed TREATMENT CODE/TIME: 97241/ 31 minutes Thank you for the opportunity to participate in the care of this patient. Please sign an return this page within 30 days if you agree with the above POC. Thank you! Physician Signature Date [facility]
--- NOTE | 2023-09-16 12:08 | W.ANESPOSTOP ---
Postoperative Evaluation Date, Time and Location Date Performed: 09/16/23 Time Performed: 12:08 Patient Location: Day Surgery Unit Vital Signs Most Recent Imported Vital Signs: Most Recent Vital Signs Temp Pulse Resp BP Pulse Ox 36.9 C 84 16 110/56 L 95 09/16/23 11:25 09/16/23 11:25 09/16/23 11:25 09/16/23 11:25 09/16/23 11:25 Pain Score Most Recent Pain Score: Most Recent Pain Score Pain Level 3 09/16/23 11:25 Assessment Mental Status: Awake (Alert & Oriented to Patient Baseline) Airway and Respiratory Function: Patent airway with normal (patient baseline) respiratory exam Cardiovascular Function: Hemodynamically Stable Hydration Status: Adequately Hydrated Nausea & Vomiting: No Nausea or Vomiting Pain: Pain is tolerable per patient Peripheral Nerve Block: Patient did not receive a nerve block
== END 2023-09-16 12:45 | disposition home or self-care (01) ==
PROVIDERS: PCP Nurse Practitioner; Visit Provider Student in an Organized Health Care Education/Training Program
PROC: (CPT 27130; principal; 2023-09-16 07:30)
DX: M16.12 Unilateral primary osteoarthritis, left hip (principal); M87.852 Other osteonecrosis, left femur; I10 Essential (primary) hypertension; I27.20 Pulmonary hypertension, unspecified; K21.9 Gastro-esophageal reflux disease without esophagitis
CPT/HCPCS: 20985; 27130; 97161; 73501; C1776; J0690; J1100; J2001; J2250; J2371; J2401; J2405; J2704; J3010

== ENCOUNTER 2023-10-01 13:38 | Outpatient (CLI) | payer MEDICARE, MEDICAID, SELFPAY ==
--- NOTE | 2023-10-01 11:10 | DI.RAD_ITS ---
Exam(s) XR HIP LT COMPLETE AP PELVIS EXAM: XR HIP LT COMPLETE AP PELVIS CLINICAL HISTORY: FIRST POST OP LEFT JAMIN. TECHNIQUE: 2D digital imaging was performed. Two views. COMPARISON: CR XR PELVIS (1 OR 2 VIEWS) from 06/01/2023 XA XR HIP LT IN OR from 09/16/2023 FINDINGS: BONES: No acute fracture is present. No bony destructive lesion is seen. Bilateral hip prostheses. JOINTS: No dislocation present. Bilateral hip prostheses are unchanged in alignment. SOFT TISSUE: Normal. IMPRESSION: Stable appearance of bilateral hip prostheses. DATA REPOSITORY: RADIATION DOSE DELIVERED:
== END 2023-10-01 13:39 | disposition home or self-care (01) ==
LOC: DIORS 13:39
PROVIDERS: PCP Nurse Practitioner; Referring Provider Nurse Practitioner; Visit Provider Physician Assistant
DX: Z96.642 Presence of left artificial hip joint (principal); Z47.1 Aftercare following joint replacement surgery
CPT/HCPCS: 73502

== ENCOUNTER 2023-10-28 01:59 | Outpatient (CLI) | payer MEDICARE, MEDICAID, SELFPAY ==
--- NOTE | 2023-10-28 | DI.CT_ITS ---
Exam(s) CT THORAX CTA EXAM: CT THORAX CTA CLINICAL HISTORY: I26.99 Other Pulmonary embolism w/o acute cor pulmonale. TECHNIQUE: Imaging Protocol: CT angiography of the chest was performed using pulmonary embolus nisa col. Multi planar reconstructions were performed. CONTRAST MATERIAL: Intravenous: Omnipaque 350 Contrast volume: 100 cc COMPARISON: CT CT CHEST PE CTA from 05/05/2023 FINDINGS: CHEST: THORACIC AORTA: The diameter of the ascending thoracic aorta is upper normal. Diameter of the aortic arch and descending thoracic aorta are upper normal. There is no evidence of aortic dissection. Lo wermost aspect of the field of view is just below the takeoff point of the superior mesenteric artery . PULMONARY ARTERIES: There are no intraluminal filling defects to suggest acute pulmonary emboli. LUNGS: There are no infiltrates nor evidence of pulmonary infarction.. There are no pleural effusions . MEDIASTINUM: There is no hilar nor mediastinal adenopathy. Visualized thyroid unremarkable. CARDIAC: Heart size is upper normal. There is no pericardial effusion.Caliber of the thoracic aorta is within normal limits. No dissection there is no significant shift of the interventricular septum. There is no obvious contrast reflux into the intrahepatic IVC. PARTIALLY VISUALIZED UPPERMOST ABDOMEN: No obvious findings OSSEOUS: There are multiple partially healed fractures of the right 5th through 9th ribs. No acute a ppearing rib fractures identified. 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 Sternum appears intact without fractures.. IMPRESSION: 1. No evidence of acute pulmonary emboli. No evidence of pulmonary infarction.No significant infiltr ates nor pleural effusions. 2. No evidence of thoracic aortic aneurysm nor aortic dissection nor pericardial effusion. 3. Multiple partially healed right-sided rib fractures there are no acute fractures evident RADIATION DOSE DELIVERED: 175.28mGy.cm Total DLP DATA REPOSITORY: All CT scans at this facility are submitted to the National Radiology Data Registry (NRDR) Dose Index Registry (DIR) with the [employer] (ACR). RADIATION OPTIMIZATION: All CT scans at this facility use at least one of these dose optimization te chniques: automated exposure control; mA and/or kV adjustment per patient size (includes targeted exa ms where dose is matched to clinical indication); or iterative reconstruction.
[2023-10-28] MEDS: Omnipaque 350 MG/ML 100 ML BTL IJ (09:21)
[2023-10-28] MEDS: Normal Saline - Diluent 50 ML VIAL IJ (09:22)
== END 2023-10-28 02:19 ==
PROVIDERS: PCP Nurse Practitioner; Visit Provider Nurse Practitioner
DX: I26.99 Other pulmonary embolism without acute cor pulmonale (principal)
CPT/HCPCS: 71275; J3490

== ENCOUNTER → 2023-11-04 12:52 | Outpatient (BNVA) | payer MEDICARE, MEDICAID, SELFPAY | PROVIDERS: PCP Nurse Practitioner; Referring Provider Nurse Practitioner; Visit Provider Physician Assistant Surgical | DX: J44.9 Chronic obstructive pulmonary disease, unspecified (principal); F17.210 Nicotine dependence, cigarettes, uncomplicated; I26.99 Other pulmonary embolism without acute cor pulmonale | CPT/HCPCS: 99214 ==

== ENCOUNTER → 2024-06-02 14:48 | Outpatient (BNVA) | payer MEDICARE, MEDICAID, SELFPAY | PROVIDERS: PCP Nurse Practitioner; Referring Provider Nurse Practitioner; Visit Provider Physician Assistant Surgical | DX: J44.9 Chronic obstructive pulmonary disease, unspecified (principal); F17.210 Nicotine dependence, cigarettes, uncomplicated | CPT/HCPCS: 99214 ==

== ENCOUNTER 2024-10-11 07:43 | Outpatient (CLI) | payer MEDICARE, MEDICAID, SELFPAY ==
--- NOTE | 2024-10-11 05:45 | DI.US_ITS ---
Exam(s) US THYROID EXAM: US THYROID CLINICAL HISTORY: 1 year follow up, right-side nodule,e04.1. TECHNIQUE: Ultrasound thyroid performed using standard protocol. COMPARISON: US US SOFT TISSUE HEAD/NECK from 10/09/2023 FINDINGS: ISTHMUS: 5 mm RIGHT LOBE: Size: 4.2 x 2.71.9 cm Echogenicity: Normal. Vascularity: Normal. Nodules: Single nodule in the midpole measuring 10 x 7 x 7 millimeters. Solid, hypoechoic, wire than tall, smooth margins, macro calcifications and comet tail calcifications. TR 4. LEFT LOBE: Size: 3.9 x 2.1 x 1.9 cm Echogenicity: Normal. Vascularity: Normal. Nodules: None. OTHER FINDINGS: None. IMPRESSION: Stable 10 millimeter maximal dimension right TR4 thyroid nodule. Follow-up could be considered. DATA REPOSITORY:
== END 2024-10-11 08:03 ==
PROVIDERS: PCP Nurse Practitioner; Visit Provider Registered Nurse Maternal Newborn
DX: E04.1 Nontoxic single thyroid nodule (principal)
CPT/HCPCS: 76536

== ENCOUNTER 2024-11-04 11:31 | Outpatient (CLI) | payer MEDICARE, MEDICAID, SELFPAY ==
--- NOTE | 2024-11-04 09:30 | DI.RAD_ITS ---
Exam(s) XR KNEE LT 4V AP,LAT,PATRICIA,PAT EXAM: XR KNEE LT 4V AP,LAT,PATRICIA,PAT CLINICAL HISTORY: LEFT KNEE PAIN. TECHNIQUE: 2D digital imaging was performed. Three views. COMPARISON: No exams were available for comparison FINDINGS: BONES: No acute fracture is present. No bony destructive lesion is seen. JOINTS: The knee is normally aligned. No joint effusion is seen. The joint spaces are maintained. No significant degenerative changes. SOFT TISSUE: Diffuse edema. IMPRESSION: Soft tissue edema. No bony abnormalities. DATA REPOSITORY: RADIATION DOSE DELIVERED:
== END 2024-11-04 11:32 | disposition home or self-care (01) ==
LOC: DIORS 11:32
PROVIDERS: PCP Nurse Practitioner; Referring Provider Nurse Practitioner; Visit Provider Physician Assistant
DX: M25.562 Pain in left knee (principal); R60.0 Localized edema
CPT/HCPCS: 99213; 73564

== ENCOUNTER → 2024-12-01 14:41 | Outpatient (BNVA) | payer MEDICARE, MEDICAID, SELFPAY | PROVIDERS: PCP Nurse Practitioner; Referring Provider Nurse Practitioner; Visit Provider Physician Assistant Surgical | DX: J44.9 Chronic obstructive pulmonary disease, unspecified (principal); F17.211 Nicotine dependence, cigarettes, in remission | CPT/HCPCS: 99214 ==

== ENCOUNTER → 2025-01-03 01:37 | Outpatient (CLI) | payer MEDICARE, MEDICAID, SELFPAY ==
--- NOTE | 2025-01-03 06:15 | DI.CTLCSR_ITS ---
Exam(s) CT CHEST LUNG CANCER SCREEN EXAM: CT CHEST LUNG CANCER SCREEN CLINICAL HISTORY: Screening for lung cancer,FORMER [employer], Z87.891 TECHNIQUE: Imaging Protocol: Axial computed tomography images with coronal and sagittal reformatted images were created and reviewed. Lung Computer Aided Detection (CAD) was utilized. COMPARISON: CT CT CHEST PE CTA from 05/05/[address] ABD/PELVIS W/ CONTRAST from 06/23/[address] THORAX CTA from 10/28/2023 FINDINGS: The examination is limited due to patient motion artifact. Tracheobronchial tree: Patent where visualized. No bronchiectasis. Pulmonary parenchyma: No consolidation or dominant measurable mass. No architectural distortion. Lung Nodules: There are no suspicious pulmonary nodules. Mediastinum and Beatrice: No dominant adenopathy or fluid collection. The esophagus is unremarkable. Thyroid gland: Unremarkable. Lymph nodes: Unremarkable. Pleura: No effusion or pneumothorax. Heart: The heart is not dilated. Mild coronary artery calcification is present. No pericardial effusion. Aorta: The ascending thoracic aorta measures 4.0 x 4.0 cm. Atherosclerotic calcification is present. Upper abdomen: There is stable tiny hypodensities in the liver which are too small for further characterization but likely reflects cysts. Soft Tissues: There is bilateral gynecomastia. Bones: Within normal limits. There are old healed right rib fractures. IMPRESSION: There are no suspicious pulmonary nodules. Lung RADS Cat 1 - Negative: No nodules and definitely benign nodules Lung-RADS 1.0 CATEGORIES: Category 0 - Prior chest CT exam(s) being located for comparison. Category 1 - Annual screening in 12 months. No nodules or definitely benign nodules. Category 2 - Annual screening in 12 months. Benign appearance. Nodules with low likelihood of becoming active cancer. Category 3 - 6-month follow-up. Probably benign. Short-term follow-up suggested. Nodules with low likelihood of becoming active cancer. Category 4A - 3-month follow-up and CT/PET if >8 mm in size. Suspicious finding. Findings which require additional testing. Category 4B - Findings which require additional testing and tissue sampling. Suspicious finding. Category 4X - Category 3 or 4 nodules with additional features or imaging findings that increases the suspicion of malignancy. Modifier S- Potentially clinically significant finding. (Non lung cancer) RADIATION DOSE DELIVERED: 106.87mGy.cm Total DLP 106.87mGy.cmTotal DLP DATA REPOSITORY: All CT scans at this facility are submitted to the National Radiology Data Registry (NRDR) Dose Index Registry (DIR) with the [employer] (ACR). RADIATION OPTIMIZATION: All CT scans at this facility use at least one of these dose optimization techniques: automated exposure control; mA and/or kV adjustment per patient size (includes targeted exams where dose is matched to clinical indication); or iterative reconstruction.
== END ==
LOC: DI 01:37
PROVIDERS: PCP Nurse Practitioner; Visit Provider Physician Assistant Surgical
DX: Z12.2 Encounter for screening for malignant neoplasm of respiratory organs (principal); Z87.891 Personal history of nicotine dependence
CPT/HCPCS: 71271

== ENCOUNTER 2025-01-03 09:23 | Emergency (ER) | payer MEDICARE, MEDICAID, SELFPAY ==
[2025-01-03 09:30] VITALS: BP 138/79; PULSE 98; RESP 16; TEMP 36.8; O2SAT 94
--- NOTE | 2025-01-03 09:30 | DI.US_ITS ---
Exam(s) US EXTREMITY VENOUS BI EXAM: US EXTREMITY VENOUS BI CLINICAL HISTORY: Leg Swelling, pain redness. TECHNIQUE: Bilateral lower extremity venous ultrasound performed using grayscale, color-flow, and spectral Doppler analysis. COMPARISON: US US EXTREMITY VENOUS BI from 06/15/2020 FINDINGS: The right common femoral, femoral and popliteal veins demonstrate normal compressibility, augmentation, and color Doppler. The posterior tibial veins are patent. The saphenofemoral junction is unremarkable. There is no evidence of a Barrios's cyst. The soft tissues are unremarkable. The left common femoral, femoral and popliteal veins demonstrate normal compressibility, augmentation, and color Doppler. The posterior tibial veins are patent. The saphenofemoral junction is unremarkable. There is no evidence of a Barrios's cyst. The soft tissues are unremarkable. IMPRESSION: 1. No evidence of a right lower extremity DVT. 2. No evidence of a left lower extremity DVT. DATA REPOSITORY:
--- NOTE | 2025-01-03 09:45 | W.ED.GENAD ---
Discharge Plan Disposition Patient Disposition: Home Condition: Stable Discharge Details Clinical Impression: Peripheral vascular disease, Neuropathy, Bilateral lower leg cellulitis Primary Care Provider: Conchis Tong ED Provider: Yari Avalos Home Meds and New Rx's Prescriptions: New gabapentin 300 mg capsule 300 mg PO QHS PRN (Reason: Neuropathy) 7 Days Qty: 14 0RF Rx Instructions: Please take 1 capsule by mouth daily as needed for the next 7 days cephalexin 500 mg capsule 500 mg PO BID 10 Days Qty: 20 0RF Rx Instructions: Take 1 capsule by mouth twice daily for the next 10 days Continued fluticasone propionate [Flonase Allergy Relief] 50 mcg/actuation spray,suspension 1 spray intranasal BID PRN Rx Instructions: administer into each nostril metoprolol tartrate 25 mg tablet 25 mg PO DAILY omeprazole 40 mg capsule,delayed release(DR/EC) 40 mg PO DAILY potassium bicarb-citric acid 20 mEq tablet, effervescent 20 meq PO DAILY methylphenidate HCl 10 mg tablet 10 mg PO DAILY ipratropium-albuterol 0.5 mg-3 mg(2.5 mg base)/3 mL solution for nebulization 3 ml inhalation Q4H PRN (Reason: wheezing) Qty: 540 8RF albuterol sulfate [Ventolin HFA] 90 mcg/actuation HFA aerosol inhaler 2 puff inhalation Q6H PRN (Reason: shortness of breath or wheezing) Qty: 8.5 6RF Stiolto Respimat 2.5-2.5 mcg/actuation mist 2 puff inhalation DAILY Qty: 4 12RF xwfgofun-pgkdbxzeb-QG 3.5-10,000-1 mg/mL-unit/mL-% drops,suspension 4 drp otic (ear) TID ibuprofen 200 mg tablet 200 mg PO Q6H PRN tamsulosin 0.4 mg capsule 0.4 mg PO DAILY torsemide 20 mg tablet 40 mg PO DAILY methadone [Methadone Intensol] 10 mg/mL concentrate 180 mg PO DAILY atorvastatin [Lipitor] 20 MG tablet 20 mg PO QPM lisinopril 20 MG tablet 20 mg PO QAM acetaminophen 500 mg tablet 1,000 mg PO TID Qty: 90 3RF Discharge Instructions Instructions: Peripheral Neuropathy, Cellulitis (Skin Infection), Adult ED Additional Instructions: No evidence of systemic infection, no evidence of blood clot in your legs, no evidence of worsening of the congestive heart failure. I do suspect that you may have a skin infection on top of peripheral vascular disease which is chronic. Please take the antibiotic twice daily with yogurt or a probiotic as directed. Please take the gabapentin at bedtime for the nerve pain. Please keep your legs elevated and wear compression stocking daily once the swelling goes down. We did wrap your legs today with Brayden wrap's. Follow up with primary care provider in 3-5 days. Return to ED sooner if any worsening or concerns. Stand Alone Forms: Portal Information Referrals: Conchis Tong [Primary Care Provider, Medicine] - 5 days Clinical Impression: Neuropathy; Peripheral vascular disease HPI General Mode of arrival: ambulatory. Date/Time Provider Initiated Documentation: 01/03/25 09:27. Limitations to Documentation: no limitations. Information obtained by: patient, RN notes reviewed and old records reviewed. HPI Narrative: 69-year-old male presents to the ER with a chief complaint of bilateral leg swelling and burning. He does have a history of CHF, hep C, hypertension, restless leg syndrome, chronic kidney disease, neuropathy and peripheral vascular disorder. He does have erythemic bilateral lower extremities below the knees to the ankles, it does appear chronic. However he reports that the erythema has increased. Denies any fever or chills. Denies any chest pain or shortness of breath. Related Data Home Medications ?Medication ?Instructions ?Recorded ?Confirmed atorvastatin 20 mg tablet (Lipitor) 20 mg PO QPM 02/11/16 01/03/25 lisinopril 20 mg tablet 20 mg PO QAM 02/11/16 01/03/25 yveiyegy-lgkpqwzud-fgibntqte 3.5 4 drp otic (ear) TID 05/15/21 01/03/25 mg-10,000 unit/mL-1 % ear drops,susp metoprolol tartrate 25 mg tablet 25 mg PO DAILY 07/14/23 01/03/25 omeprazole 40 mg capsule,delayed 40 mg PO DAILY 07/14/23 01/03/25 release potassium bicarbonate-citric acid 20 meq PO DAILY 07/14/23 01/03/25 20 mEq effervescent tablet fluticasone propionate 50 1 spray intranasal BID PRN 08/05/23 01/03/25 mcg/actuation nasal spray,suspension (Flonase Allergy Relief) acetaminophen 500 mg tablet 1,000 mg (2 x 500 mg) PO TID #90 09/16/23 01/03/25 tabs ibuprofen 200 mg tablet 200 mg PO Q6H PRN 10/21/23 01/03/25 tamsulosin 0.4 mg capsule 0.4 mg PO DAILY 10/21/23 01/03/25 torsemide 20 mg tablet 40 mg PO DAILY 10/21/23 01/03/25 methadone 10 mg/mL oral 180 mg PO DAILY 12/17/23 01/03/25 concentrate (Methadone Intensol) methylphenidate HCl 10 mg tablet 10 mg PO DAILY 12/17/23 01/03/25 albuterol sulfate 90 mcg/actuation 2 puff inhalation Q6H PRN 06/02/24 01/03/25 aerosol inhaler (Ventolin HFA) shortness of breath or wheezing #8.5 grams ipratropium 0.5 mg-albuterol 3 mg 3 ml inhalation Q4H PRN wheezing 06/02/24 01/03/25 (2.5 mg base)/3 mL nebulization #540 mL soln tiotropium 2.5 mcg-olodaterol 2.5 2 puff inhalation DAILY #4 grams 06/02/24 01/03/25 mcg/actuation mist for inhalation (Stiolto Respimat) cephalexin 500 mg capsule 500 mg PO BID Cellulitis 10 days 01/03/25 #20 caps gabapentin 300 mg capsule 300 mg PO QHS PRN Neuropathy 7 01/03/25 days #14 caps Previous Rx's ?Medication ?Instructions ?Recorded acetaminophen 500 mg tablet 1,000 mg (2 x 500 mg) PO TID #90 09/16/23 tabs albuterol sulfate 90 mcg/actuation 2 puff inhalation Q6H PRN 06/02/24 aerosol inhaler (Ventolin HFA) shortness of breath or wheezing #8.5 grams ipratropium 0.5 mg-albuterol 3 mg 3 ml inhalation Q4H PRN wheezing 06/02/24 (2.5 mg base)/3 mL nebulization #540 mL soln tiotropium 2.5 mcg-olodaterol 2.5 2 puff inhalation DAILY #4 grams 06/02/24 mcg/actuation mist for inhalation (Stiolto Respimat) cephalexin 500 mg capsule 500 mg PO BID Cellulitis 10 days 01/03/25 #20 caps gabapentin 300 mg capsule 300 mg PO QHS PRN Neuropathy 7 01/03/25 days #14 caps Allergies Allergy/AdvReac Type Severity Reaction Status Date / Time No Known Drug Allergies Allergy Unknown Other (See Verified 01/03/25 09:34 Comment) General Stated Complaint: Vascular JOHN: 3 Review of Systems Integumentary/Breasts Skin/Breast: Reports pruritus, Reports erythema, Reports skin pain and Reports skin swelling Exam Const General: cooperative and well developed Nutritional Appearance: obese Orientation: alert, awake and oriented x3 Resp Effort & Inspection: normal respiratory effort and able to speak in complete sentences Auscultation: clear to auscultation bilaterally Cardio Rhythm: regular rhythm Heart Sounds: S1 normal and S2 normal Skin General skin exam: dry skin and erythema Extrem General: edema Laterality: bilateral (Lower extremities from ankle to below knee) Right lower extremity: edema Details: pitting and 2+ Left lower extremity: edema Details: pitting and 2+ Upper/lower leg/hip images:  1. Erythema edema, 2+ pitting, appears to be chronic peripheral vascular disease. 2. Erythema, 2+ pitting edema, peripheral vascular disease. Does have multiple varicose veins, reports worse when is the left medial popliteal area. Course Vital Signs Vital signs: Vital Signs Temperature 36.8 C 01/03/25 09:30 Pulse 98 H 01/03/25 09:30 Respiratory Rate 16 01/03/25 09:30 Blood Pressure 138/79 01/03/25 09:30 Pulse Oximetry 94 01/03/25 09:30 Temperature 36.8 C 01/03/25 09:30 Temperature Source Temporal Artery Scan 01/03/25 09:30 Pulse 98 H 01/03/25 09:30 Respiratory Rate 16 01/03/25 09:30 Blood Pressure 138/79 01/03/25 09:30 Blood Pressure Position Sitting 01/03/25 09:30 Pulse Oximetry 94 01/03/25 09:30 Oxygen Delivery Method Room Air 01/03/25 09:30 Oxygen Flow Rate 0 01/03/25 09:30 Pain Level 7 01/03/25 09:30 Medical Decision Making 69-year-old male presents to the ER with a chief complaint of bilateral leg swelling and burning. He does have a history of CHF, hep C, hypertension, restless leg syndrome, chronic kidney disease, neuropathy and peripheral vascular disorder. On exam he does have erythemic bilateral lower extremities below the knees to the ankles, it does appear chronic. However he reports that the erythema has increased. Denies any fever or chills. Denies any chest pain or shortness of breath. Workup ordered including CBC CMP procalcitonin, CRP and ultrasound to rule out DVT. No leukocytosis, lites are 466, sodium is 135 anion gap 2.2, serial troponins negative, CBC active protein is elevated at 4.83. Procalcitonin is less than 0.10, no evidence for DVT on the extremity ultrasound. I feel confident that this is chronic peripheral vascular disease. No evidence of systemic infection however will place patient on cephalexin for the next 7 days and give gabapentin for the neuropathy. I will have patient follow-up with PCP within the next 3 to 5 days for further evaluation and recheck. Patient given a prescription for gabapentin and cephalexin to treat for possible cellulitis however I do suspect that this is chronic. He reports decrease in his pain after the gabapentin. Prescription for 300 at bedtime ordered. I did instruct him to follow-up with his PCP. He verbalized understanding. Patient was ambulatory and in no and hemodynamically stable upon discharge. This text was generated using [employer] system, please disregard any oddities of phrase or misspellings. Medical Records Medical records reviewed: Yes I reviewed the patient's medical records. Lab Data Lab results reviewed: Yes I reviewed the patient's lab results. Labs: Laboratory Tests Range/Units 01/03/25 01/03/25 01/03/25 09:58 09:58 10:46 WBC (4.4-10.8) 10^3/uL 8.07 RBC (4.36-5.78) 10^6/uL 4.20 L Hgb (13.5-17.5) g/dL 11.2 L Hct (40.0-50.0) % 35.8 L MCV (80-95) fL 85 MCH (27.0-33.0) pg 26.7 L MCHC (32.0-36.0) % 31.3 L RDW (11.8-14.1) % 14.4 H Plt Count (130-400) 10^3/uL 466 H MPV (8.0-11.0) fL 8.9 Immature Gran % % 0.4 Neutrophils % % 62.8 Lymphocytes % % 21.9 Monocytes % % 12.4 Eosinophils % % 2.0 Basophils % % 0.5 Nucleated RBC % (0.0-0.3) % 0.0 Absolute Neutrophils (1.2-6.7) 10^3/uL 5.07 Absolute Lymphocytes (1.2-3.4) 10^3/uL 1.77 Absolute Monocytes (0.1-0.8) 10^3/uL 1.00 H Absolute Eosinophils (0.0-0.7) 10^3/uL 0.16 Absolute Basophils (0.0-0.2) 10^3/uL 0.04 Sodium (136-145) mmol/L 135 L Potassium (3.5-5.1) mmol/L 4.4 Chloride (98-107) mmol/L 102 Carbon Dioxide (20.0-31.0) mmol/L 30.8 Anion Gap (3-11) mmol/L 2.2 L BUN (9-23) mg/dL 17 Creatinine (0.73-1.18) mg/dL 1.01 Est GFR (CKD-EPI 2020) (mL/min/1.73m2) 73.60 Glucose (74-106) mg/dL 95 Calcium (8.3-10.6) mg/dL 8.7 Magnesium (1.6-2.6) mg/dL 2.0 Total Bilirubin (0.2-1.2) mg/dL 0.20 AST (<34) U/L 17 ALT (10-49) U/L 17 Alkaline Phosphatase (46-116) U/L 72 Troponin I (<54) ng/L < 3 < 3 C-Reactive Protein (<=0.50) mg/dL 4.83 H Cancelled NT-Pro-B Natriuret Pep (<300) pg/mL 109 Total Protein (5.7-8.2) g/dL 8.0 Albumin (3.4-5.0) g/dL 4.3 Procalcitonin ng/mL < 0.10 Range/Units 01/03/ 12:37 WBC (4.4-10.8) 10^3/uL RBC (4.36-5.78) 10^6/uL Hgb (13.5-17.5) g/dL Hct (40.0-50.0) % MCV (80-95) fL MCH (27.0-33.0) pg MCHC (32.0-36.0) % RDW (11.8-14.1) % Plt Count (130-400) 10^3/uL MPV (8.0-11.0) fL Immature Gran % % Neutrophils % % Lymphocytes % % Monocytes % % Eosinophils % % Basophils % % Nucleated RBC % (0.0-0.3) % Absolute Neutrophils (1.2-6.7) 10^3/uL Absolute Lymphocytes (1.2-3.4) 10^3/uL Absolute Monocytes (0.1-0.8) 10^3/uL Absolute Eosinophils (0.0-0.7) 10^3/uL Absolute Basophils (0.0-0.2) 10^3/uL Sodium (136-145) mmol/L Potassium (3.5-5.1) mmol/L Chloride (98-107) mmol/L Carbon Dioxide (20.0-31.0) mmol/L Anion Gap (3-11) mmol/L BUN (9-23) mg/dL Creatinine (0.73-1.18) mg/dL Est GFR (CKD-EPI 2020) (mL/min/1.73m2) Glucose (74-106) mg/dL Calcium (8.3-10.6) mg/dL Magnesium (1.6-2.6) mg/dL Total Bilirubin (0.2-1.2) mg/dL AST (<34) U/L ALT (10-49) U/L Alkaline Phosphatase (46-116) U/L Troponin I (<54) ng/L Cancelled C-Reactive Protein (<=0.50) mg/dL NT-Pro-B Natriuret Pep (<300) pg/mL Total Protein (5.7-8.2) g/dL Albumin (3.4-5.0) g/dL Procalcitonin ng/mL PFSH All Active Problems (Updated 01/03/25 @ 11:17 by Yari Avalos NP) Bilateral lower leg cellulitis (Acute) Neuropathy (Acute) Peripheral vascular disease (Chronic) Bilateral leg edema (Acute) Osteoarthritis of left knee (Acute) Excessive cerumen in both ear canals (Acute) Thyroid nodule (Acute) 0.9 cm TR5 right-side 10/09/2023 History of total left hip arthroplasty (Acute 09/16/23) Status post total replacement of right hip (Acute) Pulmonary hypertension (Acute) Abnormal chest CT (Acute) Dyspnea (Acute) Nicotine dependence, cigarettes, uncomplicated (Acute) Pleural effusion (Acute) Ribs, multiple fractures (Acute) Atelectasis (Acute) Pedal edema (Acute) Hepatitis C (Chronic) Heartburn (Acute) GERD (gastroesophageal reflux disease) (Chronic) Essential hypertension (Acute) Depression (Chronic) Atrioventricular block (Acute) Arthritis (Acute) Anxiety (Chronic) ADHD (Acute) Medical History Tear of meniscus of right knee ASD (atrial septal defect) Syncope Alcohol abuse Hx of echocardiogram (05/05/2023) Hx of colonic polyp Neuropathy BPH loc w/o ur obs/LUTS Chronic pain Chronic otitis externa of right ear Hyperlipidemia Edema CHF (congestive heart failure) Hypertension 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 High risk medication use Morbid obesity Nocturnal hypoxia Restless leg syndrome Central sleep apnea Chronic hip pain Chronic back pain CKD (chronic kidney disease) Unspecified rotator cuff tear or rupture of right shoulder, not specified as traumatic History of meniscal tear History of drug abuse History of alcohol abuse Surgical History S/P rotator cuff repair Right shoulder X2 Left as well Status post tonsillectomy Status post total hip replacement, bilateral 04/26/2019, Left 09/16/23 H/O: vasectomy History of esophagogastroduodenoscopy (EGD) History of colonoscopy H/O arthroscopy of left knee Family History Father Diabetes Hypertension Mother Hypertension Heart disease Hypothyroidism Breast cancer Brother Myocardial infarction Hypertension Heart disease Heart failure Alcohol use disorder Son No problems noted. Social History Smoking/Tobacco Use Status: Former Tobacco Use Quit Date: 02/09/23 Tobacco: How many years used: 20 Second Hand Exposure: Yes Smoking risk assessment performed?: Yes Alcohol Intake: former Year quit: 30 Drug use: Current Sobriety Substance use type: former substance user and marijuana Household members: spouse Housing: house Number of Children: 2 Education Level: high school current occupation: Retired Pets and animals: Yes Pets and animals: cat(s) Do you feel safe at home: Yes Do you feel safe in your relationship?: Yes
[2025-01-03 10:09] LABS: Abs Immature Grans 0.03 10^3/uL (0.0-0.06); HCT 35.8 % (40.0-50.0); HGB 11.2 g/dL (13.5-17.5); Immature Grans % 0.4 %; MCH 26.7 pg (27.0-33.0); MCHC 31.3 % (32.0-36.0); MCV 85 fL (80-95); MPV 8.9 fL (8.0-11.0); Platelet Count 466 10^3/uL (130-400); RBC 4.20 10^6/uL (4.36-5.78); RDW 14.4 % (11.8-14.1); RDW-SD 44.9 fL; WBC 8.07 10^3/uL (4.4-10.8)
[2025-01-03 10:28] LABS: C-Reactive Protein 4.83 mg/dL (<=0.50)
[2025-01-03 10:29] LABS: Magnesium 2.0 mg/dL (1.6-2.6)
[2025-01-03 10:30] LABS: ALT 17 U/L (10-49); AST 17 U/L (<34); Albumin 4.3 g/dL (3.4-5.0); Alkaline Phosphatase 72 U/L (46-116); Anion Gap 2.2 mmol/L (3-11); BUN 17 mg/dL (9-23); Bilirubin, Total 0.20 mg/dL (0.2-1.2); CO2 30.8 mmol/L (20.0-31.0); Calcium 8.7 mg/dL (8.3-10.6); Chloride 102 mmol/L (98-107); Glucose 95 mg/dL (74-106); Potassium 4.4 mmol/L (3.5-5.1); Sodium 135 mmol/L (136-145); Total Protein 8.0 g/dL (5.7-8.2)
[2025-01-03 10:38] LABS: Procalcitonin < 0.10 ng/mL
[2025-01-03 10:51] LABS: Troponin I < 3 ng/L (<54)
[2025-01-03] MEDS: Gabapentin 300 MG CAP PO (10:54)
[2025-01-03 11:10] LABS: Troponin I < 3 ng/L (<54)
[2025-01-03] MEDS: Cephalexin 500 MG CAP PO (11:35)
[2025-01-03 11:50] VITALS: BP 121/62; PULSE 85; RESP 16; TEMP 36.7; O2SAT 97
--- NOTE | 2025-01-04 10:55 | NUR.NOTE ---
Nursing Note: [facility] pharmacy called to verify the prescription for gabapentin sent to them yesterday. The provider wanted the RX to cover 7 days as needed but prescribed for 14. The provider (Yari Avalos gave me a verbal to tell them that it should have been 7 caps. I let the pharmacist know and they are going to change it before filling the prescription to 7 caps.
== END 2025-01-03 11:56 | disposition home or self-care (01) ==
PROVIDERS: Emergency Provider Registered Nurse Emergency; PCP Nurse Practitioner
DX: L03.116 Cellulitis of left lower limb (principal); L03.115 Cellulitis of right lower limb; G62.9 Polyneuropathy, unspecified; I73.9 Peripheral vascular disease, unspecified
CPT/HCPCS: 99284 ×2; 71271; 80053; 84145; 83735; 83880; 84484; 85025; 86140; 93970

== ENCOUNTER 2025-01-11 08:40 | Emergency (ER) | payer MEDICARE, SELFPAY ==
[2025-01-11 08:45] VITALS: BP 137/73; PULSE 99; RESP 18; TEMP 36.8; O2SAT 94
--- NOTE | 2025-01-11 08:50 | W.ED.GENAD ---
Discharge Plan Disposition Patient Disposition: Home Condition: Stable Discharge Details Clinical Impression: Bilateral lower leg cellulitis Primary Care Provider: Conchis Tong ED Provider: Jose Rafael Byrd Home Meds and New Rx's Prescriptions: New doxycycline hyclate 100 mg capsule 100 mg PO BID 10 Days Qty: 20 0RF Continued fluticasone propionate [Flonase Allergy Relief] 50 mcg/actuation spray,suspension 1 spray intranasal BID PRN Rx Instructions: administer into each nostril metoprolol tartrate 25 mg tablet 25 mg PO DAILY omeprazole 40 mg capsule,delayed release(DR/EC) 40 mg PO DAILY potassium bicarb-citric acid 20 mEq tablet, effervescent 20 meq PO DAILY methylphenidate HCl 10 mg tablet 10 mg PO DAILY ipratropium-albuterol 0.5 mg-3 mg(2.5 mg base)/3 mL solution for nebulization 3 ml inhalation Q4H PRN (Reason: wheezing) Qty: 540 8RF albuterol sulfate [Ventolin HFA] 90 mcg/actuation HFA aerosol inhaler 2 puff inhalation Q6H PRN (Reason: shortness of breath or wheezing) Qty: 8.5 6RF Stiolto Respimat 2.5-2.5 mcg/actuation mist 2 puff inhalation DAILY Qty: 4 12RF wrhhgdex-oopamxnvs-PF 3.5-10,000-1 mg/mL-unit/mL-% drops,suspension 4 drp otic (ear) TID ibuprofen 200 mg tablet 200 mg PO Q6H PRN tamsulosin 0.4 mg capsule 0.4 mg PO DAILY torsemide 20 mg tablet 40 mg PO DAILY methadone [Methadone Intensol] 10 mg/mL concentrate 180 mg PO DAILY atorvastatin [Lipitor] 20 MG tablet 20 mg PO QPM lisinopril 20 MG tablet 20 mg PO QAM acetaminophen 500 mg tablet 1,000 mg PO TID Qty: 90 3RF Discharge Instructions Instructions: Doxycycline, Cellulitis (Skin Infection), Adult ED Additional Instructions: You were seen in the emergency department for your bilateral lower leg cellulitis, your white blood cells have not risen sharply and you are not septic. There is no evidence of blood clot or arterial occlusion, we are going to treat you with doxycycline this antibiotic will cover different bacteria's than your previous cephalexin, please take this as directed and follow-up with your primary care provider, return for any severe acute worsening or any other emergent concerns. Stand Alone Forms: Portal Information Referrals: Conchis Tong [Primary Care Provider, Medicine] Discharge Data Discharge Date/Time-TO BE ENTERED AT DEPARTURE: 01/11/25 12:45 HPI General Date/Time Provider Initiated Documentation: 01/11/25 08:50. HPI Narrative: 69 year-old male presents to ED today by POV/ambulating with a chief complaint of recheck of bilateral lower extremity cellulitis after completing course of Keflex with onset for the past couple weeks. Quality described as machado redness in both calves, no weeping, endorses burning pain, denies medial thigh pain, endorses many varicosities, no radiation to numbness distally, fever, red streaking. Severity is described as moderate. Palliating factors include took his Keflex, and does put lotion on his calves. Provoking factors include nothing specific- denies known diabetes. Patient not anticoagulated. Related Data Home Medications ?Medication ?Instructions ?Recorded ?Confirmed atorvastatin 20 mg tablet (Lipitor) 20 mg PO QPM 02/11/16 01/11/25 lisinopril 20 mg tablet 20 mg PO QAM 02/11/16 01/11/25 vonatnne-eutmmszwg-ufoyihvuj 3.5 4 drp otic (ear) TID 05/15/21 01/11/25 mg-10,000 unit/mL-1 % ear drops,susp metoprolol tartrate 25 mg tablet 25 mg PO DAILY 07/14/23 01/11/25 omeprazole 40 mg capsule,delayed 40 mg PO DAILY 07/14/23 01/11/25 release potassium bicarbonate-citric acid 20 meq PO DAILY 07/14/23 01/11/25 20 mEq effervescent tablet fluticasone propionate 50 1 spray intranasal BID PRN 08/05/23 01/11/25 mcg/actuation nasal spray,suspension (Flonase Allergy Relief) acetaminophen 500 mg tablet 1,000 mg (2 x 500 mg) PO TID #90 09/16/23 01/11/25 tabs ibuprofen 200 mg tablet 200 mg PO Q6H PRN 10/21/23 01/11/25 tamsulosin 0.4 mg capsule 0.4 mg PO DAILY 10/21/23 01/11/25 torsemide 20 mg tablet 40 mg PO DAILY 10/21/23 01/11/25 methadone 10 mg/mL oral 180 mg PO DAILY 12/17/23 01/11/25 concentrate (Methadone Intensol) methylphenidate HCl 10 mg tablet 10 mg PO DAILY 12/17/23 01/11/25 albuterol sulfate 90 mcg/actuation 2 puff inhalation Q6H PRN 06/02/24 01/11/25 aerosol inhaler (Ventolin HFA) shortness of breath or wheezing #8.5 grams ipratropium 0.5 mg-albuterol 3 mg 3 ml inhalation Q4H PRN wheezing 06/02/24 01/11/25 (2.5 mg base)/3 mL nebulization #540 mL soln tiotropium 2.5 mcg-olodaterol 2.5 2 puff inhalation DAILY #4 grams 06/02/24 01/11/25 mcg/actuation mist for inhalation (Stiolto Respimat) doxycycline hyclate 100 mg capsule 100 mg PO BID 10 days #20 caps 01/11/25 Previous Rx's ?Medication ?Instructions ?Recorded acetaminophen 500 mg tablet 1,000 mg (2 x 500 mg) PO TID #90 09/16/23 tabs albuterol sulfate 90 mcg/actuation 2 puff inhalation Q6H PRN 06/02/24 aerosol inhaler (Ventolin HFA) shortness of breath or wheezing #8.5 grams ipratropium 0.5 mg-albuterol 3 mg 3 ml inhalation Q4H PRN wheezing 06/02/24 (2.5 mg base)/3 mL nebulization #540 mL soln tiotropium 2.5 mcg-olodaterol 2.5 2 puff inhalation DAILY #4 grams 06/02/24 mcg/actuation mist for inhalation (Stiolto Respimat) doxycycline hyclate 100 mg capsule 100 mg PO BID 10 days #20 caps 01/11/25 Allergies Allergy/AdvReac Type Severity Reaction Status Date / Time No Known Drug Allergies Allergy Unknown Other (See Verified 01/11/25 08:48 Comment) General Stated Complaint: Recheck JOHN: 3 Review of Systems All systems reviewed & are unremarkable except as noted in HPI and below Exam Narrative Exam Narrative: GENERAL APPEARANCE: Well-nourished, non-toxic, awake and alert, atraumatic, mild acute distress. SKIN: Warm, pink, dry, bilateral calf swelling and erythema with warmth to touch without any weeping or purulent drainage, nonpitting swelling, no lymphadenitis, varicosities present bilateral lower extremities HEAD: Normocephalic, atraumatic, normal hair distribution for gender/age. EYES: Normal conjunctiva, no exudates on lids/lashes. ENT: Nares patent, no circumoral cyanosis, no facial swelling NECK: Supple, trachea midline, painless cervical ROM. LUNGS/CHEST: Non-labored respirations, normal A/P diameter, symmetrical expansion, no chest wall deformity HEART (CV/PV): Regular rate, no peripheral edema, no JVD. ABDOMEN: Soft, non-distended, no guarding. MSK: Normal ROM, no swelling/deformity to bilateral UEs or LEs-Homans negative, bilateral dorsalis pedis pulses intact 2+, moving all extremities without weakness, no cyanosis, spine midline without tenderness, normal curvature. NEURO: Mental Status AAOx4 - alert to person, place, time, events No facial droop, no forehead involvement. Motor: No focal weakness - strength 5/5 in bilateral UEs and LEs, proximal and distal, symmetric. Sensory: sensation intact to light touch globally. Gait normal: patient ambulated without ataxia into ED room. PSYCH: euthymic, cooperative, pleasant, appropriate speech Course Vital Signs Vital signs: Vital Signs Temperature 36.8 C 01/11/25 08:45 Pulse 99 H 01/11/25 08:45 Respiratory Rate 18 01/11/25 08:45 Blood Pressure 137/73 01/11/25 08:45 Pulse Oximetry 94 01/11/25 08:45 Temperature 36.8 C 01/11/25 08:45 Pulse 99 H 01/11/25 08:45 Respiratory Rate 18 01/11/25 08:45 Blood Pressure 137/73 01/11/25 08:45 Pulse Oximetry 94 01/11/25 08:45 Pain Level 10 01/11/25 08:45 Medical Decision Making This dictation utilizes [id number] dictation software and may contain unedited grammatical errors. 69 year-old male presents to ED today by POV/ambulating with a chief complaint of recheck of bilateral lower extremity cellulitis after completing course of Keflex with onset for the past couple weeks. Quality described as machado redness in both calves, no weeping, endorses burning pain, denies medial thigh pain, endorses many varicosities, no radiation to numbness distally, fever, red streaking. Severity is described as moderate. Palliating factors include took his Keflex, and does put lotion on his calves. Provoking factors include nothing specific- denies known diabetes. Patients' medical history: History of alcohol abuse, neuropathy, hyperlipidemia, edema, CHF, hypertension, varicosities, obesity, CKD, history of hepatitis C. Family and social history: Noncontributory. Pertinent exam findings / vital signs include bilateral calf swelling and erythema with warmth to touch without any weeping or purulent drainage, nonpitting swelling, bilateral dorsalis pedis pulses intact distal, range of motion intact distal, no lymphadenitis, Homans negative, no medial thigh tenderness. Differential / pathologies of concern include DVT, PAD, cellulitis, lymphedema, CHF, worsening CKD. Diagnostic studies of: - CBC, CMP, D-dimer, lactate, procalcitonin, CRP, BNP, ultrasound bilateral legs, CTA aorta with runoffs. - CBC shows mild stable chronic anemia, no leukocytosis - Lactate 1.1 with negative procalcitonin - BNP normal - CRP is 5.03 - CMP shows no actionable abnormality - D-dimer is 3800 - Ultrasound is negative bilaterally - CT aorta with runoff show no severe stenosis or occlusion shows bilateral soft tissue thickening consistent with cellulitis Interventions of: - Started on Rx of doxycycline to cover for MRSA. ED Course/Assessment/Plan: 69-year-old male presents with bilateral cellulitis of the lower extremities, seen last week and had negative ultrasound, reassuring workup for CHF at that time, repeat markers of CHF BNP is normal, D-dimer was performed was 3800 which could be due to his cellulitis and his ultrasound was negative as well as CT aorta with runoff showing no severe stenosis or occlusion of PAD, does show signs of cellulitis, I do suspect what ever pathogen is causing his cellulitis was not covered by Keflex and I did switch him to doxycycline with encouraging strict return criteria for any worsening swelling, redness, fever, nausea, red streaking up the leg or any other emergent concerns. Findings not consistent with DVT, PAD, neurovascular compromise, CHF exacerbation, acute kidney injury. Disposition of bilateral lower leg cellulitis. Patient verbalized understanding of the plan and return to ED criteria and engaged in shared decision making. Medical Records Medical records reviewed: Yes I reviewed the patient's medical records. Imaging Data Radiologic Study: Attestation: I personally reviewed and interpreted this imaging study as follows: Imaging: Ultrasound Radiologist's impression: EXAM: US EXTREMITY VENOUS BI CLINICAL HISTORY: elev d-dimer, bilat leg edema. TECHNIQUE: Bilateral lower extremity venous ultrasound performed using grayscale, color-flow, and spectral Doppler analysis. COMPARISON: US US EXTREMITY VENOUS BI from 01/03/2025 FINDINGS: The right common femoral, femoral and popliteal veins demonstrate normal compressibility, augmentation, and color Doppler. The posterior tibial veins are patent. The saphenofemoral junction is unremarkable. There is no evidence of a Barrios's cyst. There is mild soft tissue edema. The left common femoral, femoral and popliteal veins demonstrate normal compressibility, augmentation, and color Doppler. The posterior tibial veins are patent. The saphenofemoral junction is unremarkable. There is no evidence of a Barrios's cyst. There is moderate soft tissue edema. IMPRESSION: 1. No evidence of a right lower extremity DVT. 2. No evidence of a left lower extremity DVT. Radiologic Study #2: Attestation: I personally reviewed and interpreted this imaging study as follows: Imaging: CT Scan Radiologist's impression: EXAM: CT ABD AORTA CTA W RUNOFF CLINICAL HISTORY: vasculopathy, edema, bilat lower extremities. TECHNIQUE: Imaging Protocol: Axial CT angiography was performed with multi-slice acquisition and multi-planar and/or 3D reconstructions. CONTRAST MATERIAL: Intravenous: Omnipaque 350 Contrast volume:150 mL Oral: No COMPARISON: CT CT ABD/PELVIS W/ CONTRAST from 06/23/2023 FINDINGS: Vascular Structures: Abdomen and pelvis: Celiac [place]/SMA: No evidence of occlusion or significant stenosis. Renal Arteries: No evidence of occlusion or significant stenosis. Aorta: No aneurysm, occlusion or significant stenosis. There is no evidence of abdominal aortic dissection. Minimal atherosclerotic calcification is present. Iliac Arteries: No evidence of occlusion or significant stenosis. There is atherosclerotic calcification but no significant stenosis. Lower extremities: Right: Common femoral and superficial femoral: No evidence of occlusion or significant stenosis. Mild atherosclerotic calcification is present within the common femoral artery. There is no significant stenosis. Deep Femoral Artery: No evidence of occlusion or significant stenosis. Popliteal: No evidence of occlusion or significant stenosis. Knee Trifurcation: No evidence of occlusion or significant stenosis. Anterior Tibial: No evidence of occlusion or significant stenosis. Posterior Tibial: No evidence of occlusion or significant stenosis. Peroneal:No evidence of occlusion or significant stenosis. Left: Common femoral and superficial femoral: No evidence of occlusion or significant stenosis. Mild atherosclerotic calcification is seen within the common femoral artery but no significant stenosis is present. Deep femoral artery: No evidence of occlusion or significant stenosis. Popliteal: No evidence ofocclusion or significant stenosis. Knee Trifurcation: No evidence of occlusion or significant stenosis. Anterior tibial: No evidence of occlusion or significant stenosis. Posterior Tibial: No evidence of occlusion or significant stenosis. Peroneal: No evidence of occlusion or significant stenosis. Soft Tissues: Lung bases: Clear. Liver: There is diffuse decreased attenuation of the liver suggestive of fatty infiltration. There again seen multiple small hypodensities scattered throughout the liver. They are too small for further characterization but likely reflect small cysts. Portal, splenic and superior mesenteric veins: Unremarkable. Gallbladder and biliary tract: No radiodense calculus or dilation. Pancreas: Normal density, no abnormal calcifications or inflammatory process. Spleen: Normal. Kidneys: Normal size, contour and axis. No radiodense stones or obstructive uropathy. No masses seen. Adrenal glands: No masses seen. Lymph nodes: Unremarkable. Bladder: Symmetric distention, no gross wall thickening. Reproductive organs: Unremarkable. Bowel: No obstruction or bowel wall thickening. The appendix is unremarkable. Peritoneal cavity: No ascites, collection or mesenteric inflammatory response. No free air. Bones: Within normal limits for the patient's age. Soft tissues: There is edema seen in the lower extremities, left greater than right. There is also mild skin thickening seen in the lower extremities, left greater than right. This may reflect cellulitis. There is no focal fluid collection seen in the lower extremities to suggest an abscess. IMPRESSION: 1. There is no acute abdominal or pelvic process. 2. There is no evidence of abdominal aortic aneurysm or dissection. 3. No evidence of significant stenosis or occlusion of the lower extremity runoff. 4. There is edema and skin thickening in the lower extremities, left greater than right which may represent a cellulitis. There is no focal fluid collection is seen to suggest an abscess. Lab Data Lab results reviewed: Yes I reviewed the patient's lab results. Labs: Laboratory Tests Range/Units 01/11/25 09:28 WBC (4.4-10.8) 10^3/uL 8.48 RBC (4.36-5.78) 10^6/uL 4.32 L Hgb (13.5-17.5) g/dL 11.1 L Hct (40.0-50.0) % 35.5 L MCV (80-95) fL 82 MCH (27.0-33.0) pg 25.7 L MCHC (32.0-36.0) % 31.3 L RDW (11.8-14.1) % 14.3 H Plt Count (130-400) 10^3/uL 458 H MPV (8.0-11.0) fL 8.8 Immature Gran % % 0.5 Neutrophils % % 64.2 Lymphocytes % % 21.7 Monocytes % % 9.6 Eosinophils % % 3.3 Basophils % % 0.7 Nucleated RBC % (0.0-0.3) % 0.0 Absolute Neutrophils (1.2-6.7) 10^3/uL 5.45 Absolute Lymphocytes (1.2-3.4) 10^3/uL 1.84 Absolute Monocytes (0.1-0.8) 10^3/uL 0.81 H Absolute Eosinophils (0.0-0.7) 10^3/uL 0.28 Absolute Basophils (0.0-0.2) 10^3/uL 0.06 D-Dimer (<500) ng/mlFEU 3886 H VBG Lactate (<or=2.0) mmol/L 1.1 Sodium (136-145) mmol/L 137 Potassium (3.5-5.1) mmol/L 4.5 Chloride (98-107) mmol/L 101 Carbon Dioxide (20.0-31.0) mmol/L 28.5 Anion Gap (3-11) mmol/L 7.5 BUN (9-23) mg/dL 18 Creatinine (0.73-1.18) mg/dL 1.00 Est GFR (CKD-EPI 2020) (mL/min/1.73m2) 74.45 Glucose (74-106) mg/dL 85 Calcium (8.3-10.6) mg/dL 9.0 Total Bilirubin (0.2-1.2) mg/dL 0.30 AST (<34) U/L 17 ALT (10-49) U/L 16 Alkaline Phosphatase (46-116) U/L 67 C-Reactive Protein (<=0.50) mg/dL 5.03 H NT-Pro-B Natriuret Pep (<300) pg/mL 90 Total Protein (5.7-8.2) g/dL 8.1 Albumin (3.2-5.0) g/dL 4.1 Procalcitonin ng/mL < 0.10 PFSH All Active Problems (Updated 01/11/25 @ 12:21 by LEONELA Mendoza) Bilateral lower leg cellulitis (Acute) Bilateral lower leg cellulitis (Acute) Neuropathy (Acute) Peripheral vascular disease (Chronic) Bilateral leg edema (Acute) Osteoarthritis of left knee (Acute) Excessive cerumen in both ear canals (Acute) Thyroid nodule (Acute) 0.9 cm TR5 right-side 10/09/2023 History of total left hip arthroplasty (Acute 09/16/23) Status post total replacement of right hip (Acute) Pulmonary hypertension (Acute) Abnormal chest CT (Acute) Dyspnea (Acute) Nicotine dependence, cigarettes, uncomplicated (Acute) Pleural effusion (Acute) Ribs, multiple fractures (Acute) Atelectasis (Acute) Pedal edema (Acute) Hepatitis C (Chronic) Heartburn (Acute) GERD (gastroesophageal reflux disease) (Chronic) Essential hypertension (Acute) Depression (Chronic) Atrioventricular block (Acute) Arthritis (Acute) Anxiety (Chronic) ADHD (Acute) Medical History Tear of meniscus of right knee ASD (atrial septal defect) Syncope Alcohol abuse Hx of echocardiogram (05/05/2023) Hx of colonic polyp Neuropathy BPH loc w/o ur obs/LUTS Chronic pain Chronic otitis externa of right ear Hyperlipidemia Edema CHF (congestive heart failure) Hypertension 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 High risk medication use Morbid obesity Nocturnal hypoxia Restless leg syndrome Central sleep apnea Chronic hip pain Chronic back pain CKD (chronic kidney disease) Unspecified rotator cuff tear or rupture of right shoulder, not specified as traumatic History of meniscal tear History of drug abuse History of alcohol abuse Surgical History S/P rotator cuff repair Right shoulder X2 Left as well Status post tonsillectomy Status post total hip replacement, bilateral 04/26/2019, Left 09/16/23 H/O: vasectomy History of esophagogastroduodenoscopy (EGD) History of colonoscopy H/O arthroscopy of left knee Family History Father Diabetes Hypertension Mother Hypertension Heart disease Hypothyroidism Breast cancer Brother Myocardial infarction Hypertension Heart disease Heart failure Alcohol use disorder Son No problems noted. Social History Smoking/Tobacco Use Status: Former Tobacco Use Quit Date: 02/09/23 Tobacco: How many years used: 20 Second Hand Exposure: Yes Smoking risk assessment performed?: Yes Alcohol Intake: former Year quit: 30 Drug use: Current Sobriety Substance use type: former substance user and marijuana Household members: spouse Housing: house Number of Children: 2 Education Level: high school current occupation: Retired Pets and animals: Yes Pets and animals: cat(s) Do you feel safe at home: Yes Do you feel safe in your relationship?: Yes
[2025-01-11 09:33] LABS: Abs Immature Grans 0.04 10^3/uL (0.0-0.06); HCT 35.5 % (40.0-50.0); HGB 11.1 g/dL (13.5-17.5); Immature Grans % 0.5 %; MCH 25.7 pg (27.0-33.0); MCHC 31.3 % (32.0-36.0); MCV 82 fL (80-95); MPV 8.8 fL (8.0-11.0); Platelet Count 458 10^3/uL (130-400); RBC 4.32 10^6/uL (4.36-5.78); RDW 14.3 % (11.8-14.1); RDW-SD 42.5 fL; WBC 8.48 10^3/uL (4.4-10.8)
[2025-01-11 09:52] LABS: C-Reactive Protein 5.03 mg/dL (<=0.50)
[2025-01-11 09:54] LABS: ALT 16 U/L (10-49); AST 17 U/L (<34); Albumin 4.1 g/dL (3.2-5.0); Alkaline Phosphatase 67 U/L (46-116); Anion Gap 7.5 mmol/L (3-11); BUN 18 mg/dL (9-23); Bilirubin, Total 0.30 mg/dL (0.2-1.2); CO2 28.5 mmol/L (20.0-31.0); Calcium 9.0 mg/dL (8.3-10.6); Chloride 101 mmol/L (98-107); Glucose 85 mg/dL (74-106); Potassium 4.5 mmol/L (3.5-5.1); Sodium 137 mmol/L (136-145); Total Protein 8.1 g/dL (5.7-8.2)
[2025-01-11 10:06] LABS: D-Dimer 3886 ng/mlFEU (<500)
--- NOTE | 2025-01-11 10:15 | DI.CT_ITS ---
Exam(s) CT ABD AORTA CTA W RUNOFF EXAM: CT ABD AORTA CTA W RUNOFF CLINICAL HISTORY: vasculopathy, edema, bilat lower extremities. TECHNIQUE: Imaging Protocol: Axial CT angiography was performed with multi- slice acquisition and multi-planar and/or 3D reconstructions. CONTRAST MATERIAL: Intravenous: Omnipaque 350 Contrast volume:150 mL Oral: No COMPARISON: CT CT ABD/PELVIS W/ CONTRAST from 06/23/2023 FINDINGS: Vascular Structures: Abdomen and pelvis: Celiac [place]/SMA: No evidence of occlusion or significant stenosis. Renal Arteries: No evidence of occlusion or significant stenosis. Aorta: No aneurysm, occlusion or significant stenosis. There is no evidence of abdominal aortic dissection. Minimal atherosclerotic calcification is present. Iliac Arteries: No evidence of occlusion or significant stenosis. There is atherosclerotic calcification but no significant stenosis. Lower extremities: Right: Common femoral and superficial femoral: No evidence of occlusion or significant stenosis. Mild atherosclerotic calcification is present within the common femoral artery. There is no significant stenosis. Deep Femoral Artery: No evidence of occlusion or significant stenosis. Popliteal: No evidence of occlusion or significant stenosis. Knee Trifurcation: No evidence of occlusion or significant stenosis. Anterior Tibial: No evidence of occlusion or significant stenosis. Posterior Tibial: No evidence of occlusion or significant stenosis. Peroneal:No evidence of occlusion or significant stenosis. Left: Common femoral and superficial femoral: No evidence of occlusion or significant stenosis. Mild atherosclerotic calcification is seen within the common femoral artery but no significant stenosis is present. Deep femoral artery: No evidence of occlusion or significant stenosis. Popliteal: No evidence ofocclusion or significant stenosis. Knee Trifurcation: No evidence of occlusion or significant stenosis. Anterior tibial: No evidence of occlusion or significant stenosis. Posterior Tibial: No evidence of occlusion or significant stenosis. Peroneal: No evidence of occlusion or significant stenosis. Soft Tissues: Lung bases: Clear. Liver: There is diffuse decreased attenuation of the liver suggestive of fatty infiltration. There again seen multiple small hypodensities scattered throughout the liver. They are too small for further characterization but likely reflect small cysts. Portal, splenic and superior mesenteric veins: Unremarkable. Gallbladder and biliary tract: No radiodense calculus or dilation. Pancreas: Normal density, no abnormal calcifications or inflammatory process. Spleen: Normal. Kidneys: Normal size, contour and axis. No radiodense stones or obstructive uropathy. No masses seen. Adrenal glands: No masses seen. Lymph nodes: Unremarkable. Bladder: Symmetric distention, no gross wall thickening. Reproductive organs: Unremarkable. Bowel: No obstruction or bowel wall thickening. The appendix is unremarkable. Peritoneal cavity: No ascites, collection or mesenteric inflammatory response. No free air. Bones: Within normal limits for the patient's age. Soft tissues: There is edema seen in the lower extremities, left greater than right. There is also mild skin thickening seen in the lower extremities, left greater than right. This may reflect cellulitis. There is no focal fluid collection seen in the lower extremities to suggest an abscess. IMPRESSION: 1. There is no acute abdominal or pelvic process. 2. There is no evidence of abdominal aortic aneurysm or dissection. 3. No evidence of significant stenosis or occlusion of the lower extremity runoff. 4. There is edema and skin thickening in the lower extremities, left greater than right which may represent a cellulitis. There is no focal fluid collection is seen to suggest an abscess. RADIATION DOSE DELIVERED: 1,094.57mGy.cm Total DLP 1,094.57mGy.cm Total DLP DATA REPOSITORY: All CT scans at this facility are submitted to the National Radiology Data Registry (NRDR) Dose Index Registry (DIR) with the [employer] (ACR). RADIATION OPTIMIZATION: All CT scans at this facility use at least one of these dose optimization techniques: automated exposure control; mA and/or kV adjustment per patient size (includes targeted exams where dose is matched to clinical indication); or iterative reconstruction.
--- NOTE | 2025-01-11 10:30 | DI.US_ITS ---
Exam(s) US EXTREMITY VENOUS BI EXAM: US EXTREMITY VENOUS BI CLINICAL HISTORY: elev d-dimer, bilat leg edema. TECHNIQUE: Bilateral lower extremity venous ultrasound performed using grayscale, color-flow, and spectral Doppler analysis. COMPARISON: US US EXTREMITY VENOUS BI from 01/03/2025 FINDINGS: The right common femoral, femoral and popliteal veins demonstrate normal compressibility, augmentation, and color Doppler. The posterior tibial veins are patent. The saphenofemoral junction is unremarkable. There is no evidence of a Barrios's cyst. There is mild soft tissue edema. The left common femoral, femoral and popliteal veins demonstrate normal compressibility, augmentation, and color Doppler. The posterior tibial veins are patent. The saphenofemoral junction is unremarkable. There is no evidence of a Barrios's cyst. There is moderate soft tissue edema. IMPRESSION: 1. No evidence of a right lower extremity DVT. 2. No evidence of a left lower extremity DVT. DATA REPOSITORY:
[2025-01-11 10:35] VITALS: BP 135/69; PULSE 98
[2025-01-11 11:11] LABS: Procalcitonin < 0.10 ng/mL
[2025-01-11] MEDS: Normal Saline Flush 10 ML SYR IVP (11:13)
[2025-01-11] MEDS: Normal Saline - Diluent 50 ML VIAL IJ ×2 (11:14→11:15)
[2025-01-11] MEDS: Omnipaque 350 MG/ML 50 ML BTL IJ (11:14)
[2025-01-11] MEDS: Omnipaque 350 MG/ML 100 ML BTL IJ (11:14)
[2025-01-11 11:52] VITALS: BP 138/65; PULSE 100
== END 2025-01-11 12:45 | disposition home or self-care (01) ==
PROVIDERS: Emergency Provider Physician Assistant; PCP Nurse Practitioner
DX: L03.116 Cellulitis of left lower limb (principal); L03.115 Cellulitis of right lower limb; E78.5 Hyperlipidemia, unspecified; I13.0 Hypertensive heart and chronic kidney disease with heart failure and stage 1 through stage 4 chronic kidney disease, or unspecified chronic kidney disease; I50.9 Heart failure, unspecified; N18.9 Chronic kidney disease, unspecified
CPT/HCPCS: 36415; 75635; 80053; 84145; 99285; 83605; 83880; 85025; 85379; 86140; 93970; 99284; J3490; Q9967